=== PATIENT | female | born 1995 ===

== ENCOUNTER 2024-10-10 07:43 | Inpatient (IN) | payer MEDICARE, SELFPAY ==
[2024-10-10] VITALS (60 sets, daily range): BP systolic 124–166; BP diastolic 49–121; PULSE 72–117; RESP 14–36; TEMP 36.1–38; O2SAT 78–98; BMI 16.2
[2024-10-10 08:51] LABS: Abs Immature Grans 0.04 10^3/uL (0.0-0.06); Absolute Basophil Count 0.02 10^3/uL (0.0-0.2); Absolute Eosinophil Count 0.03 10^3/uL (0.0-0.7); Absolute Monocyte Count 1.04 10^3/uL (0.1-0.8); Absolute Neutrophil Count 6.12 10^3/uL (1.2-6.7); Basophils % 0.2 %; Eosinophils % 0.3 %; HCT 32.2 % (36.0-46.0); HGB 10.1 g/dL (11.2-15.7); Immature Grans % 0.4 %; Lymphocytes % 29.3 %; MCH 31.1 pg (27.0-33.0); MCHC 31.4 % (32.0-36.0); MCV 99 fL (80-95); MPV 10.5 fL (8.0-11.0); Monocytes % 10.1 %; Neutrophils % 59.7 %; Platelet Count 286 10^3/uL (130-400); RBC 3.25 10^6/uL (3.93-5.22); RDW 14.5 % (11.7-14.6); RDW-SD 52.5 fL; WBC 10.25 10^3/uL (4.4-10.8)
[2024-10-10] MEDS: PIPERACILLIN/TAZO 4.5 GM in Normal Saline 100 ML IVPB ×3 (08:59→20:00)
[2024-10-10] MEDS: Normal Saline Flush 10 ML SYR IVP ×2 (09:07→20:53)
[2024-10-10 09:28] LABS: ALT 23 U/L (14-59); AST 42 U/L (15-37); Albumin 3.2 g/dL (3.4-5.0); Alkaline Phosphatase 113 U/L (46-116); Anion Gap 11.8 mmol/L (3-11); BUN 20 mg/dL (7-18); CO2 20.2 mmol/L (21.0-32.0); CREATININE 0.7 mg/dL (0.55-1.02); Calcium 8.8 mg/dL (8.5-10.1); Chloride 119 mmol/L (98-107); Estimated GFR 118.51 (mL/min/1.73m2); Glucose 77 mg/dL (74-106); Potassium 3.9 mmol/L (3.5-5.1); Sodium 151 mmol/L (136-145); Total Protein 6.3 g/dL (6.4-8.2)
--- NOTE | 2024-10-10 10:53 | W.PM.HP.N ---
Date of service: 10/10/24 Time of Service: 10:54 Assessment and Plan Assessment and plan (1) Septic shock: Status: Acute Assessment and plan: - Patient may criteria for septic shock as that she was noted as having a white count at outside hospital, tachycardia, lactic acid of 4.1, and he did require Levophed but this is since been discontinued upon arrival to [facility] -She was started on vancomycin and Zosyn which will be continued for presumed UTI -Significant additional information has come to light since patient has been accepted to [facility] -Orthopedic surgery reviewed images from outside hospital, late was a noncontrast that he believes there is strong evidence 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 -Plan at this time is as follows: -At this facility we are unable to safely sedate patient for MRI, therefore most appropriate study to further evaluate patient's intracranial findings at outside hospital as well as potential spinal abscess are not available -Given this limitation, plan is for anesthesia to assist in conscious sedation of patient (likely with propofol though this is subject to change at this time), in order to obtain with and without contrast head and lumbar spine CT in order to obtain best potential images at this time of the both potential intracranial process as well as potential epidural abscess -discussed with tele-neuro, concern for CVA; watershed vs. embolic vs. infectious emboli; recomend repeat head CT. Unable to get LP due to possible lumbar spine osteo/epidural abscess, rec initiating acyclovir for HSV encephalitis -head CT wthout any intracranial findings -lumbar spine CT with and w/o has been done, read pending; once read is available will reach out to tertiary care centers for transfer (2) UTI (urinary tract infection): Status: Acute Assessment and plan: - 1 potentially many sources of infection as noted above (3) Osteoarthritis of right lower extremity: Status: Acute Assessment and plan: -As noted above (4) Encephalopathy: Status: Acute Assessment and plan: -Undifferentiated at this time, this may be a combination of toxic (patient was cocaine and marijuana positive at outside hospital and those remainder of drug screen was negative), infectious (given known UTI, high likelihood for left BKA stump osteo and epidural abscess at L4-L5 on myelitis) -Additionally, given that there is potential unclear intracranial process going on, plan is to get teleneurology consultation for further recommendations. Of note, this is scheduled to happen prior to above mentioned CT with sedation so that teleneurology can most appropriately assess the patient without any additional sedating medications on board. 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 According to [facility] records patient presented there concerns for mental status exchange engineer the prior 24 hours from her family. Patient currently lives with her grandparents, who had claims that they were taking care of her however upon EMSs arrival the patient was found covered in dry stool. On arrival to the emergency tray she was significantly encephalopathic and was determined to have been in septic shock with initially low blood pressures that improved with fluid rehydration and initial lactic acid of 4.1. Based on their urinalysis they felt that this was secondary to urinary tract infection, though also noted that she had a potential cellulitis or cellulitis of her right BKA stump for which she was started on vancomycin and Zosyn. While she was at [facility] she was noted to have worsening blood pressures and mean arterial pressures less than 65 and was started on Levophed. At that time, control provider reached out to tertiary care centers who were at capacity were unable to accept the patient. Additionally, it was noted that patient had a head CT that was potentially concerning for some intracranial process and is also documented that [facility] was concern for the potential of an anoxic brain injury as patient had not returned to baseline mental status was 48 hours after presentation. As of this mental status change, patient was unable to sit still long enough to obtain MRI. Despite this, overnight hospitalist Dr. Márquez accepted the patient in transfer to [facility] despite facilities inability to sedate patient for MRI, lack of appropriate neurologic services, and without first discussing with either orthopedic surgery or general surgery to assess for their potential involvement in her suspected right BKA stump osteomyelitis. Upon arrival to [facility] patient was noted as being encephalopathic, intermittently moaning and grimacing in pain, and unable or unwilling to verbally converse with staff. She was noted as being able to move around in bed, repositioning for self. Additionally, upon arrival patient no longer required Levophed and was noted as being otherwise hemodynamically stable. Review of Systems All systems reviewed & are unremarkable except as noted in HPI and below PFSH All Active Problems (Updated 10/10/24 @ 10:55 by Emilio Blackmon MD) Polysubstance (excluding opioids) dependence (Acute) Paraplegia (Acute) Encephalopathy (Acute) Osteoarthritis of right lower extremity (Acute) UTI (urinary tract infection) (Acute) Septic shock (Acute) Social History Smoking/Tobacco Use Status: Unknown Smoking risk assessment performed?: Yes Drug use: Daily Substance use type: marijuana and crack/cocaine Details: per report from Dr. Blackmon Meds Allergies and Home Medications Allergies Allergy/AdvReac Type Severity Reaction Status Date / Time succinylcholine Allergy Severe Anaphylaxis Verified 10/10/24 09:24 Results Labs 10/10/24 08:40 10/10/24 08:40 Labs: Laboratory Results - last 24 hr 10/10/24 08:40 WBC 10.25 RBC 3.25 L Hgb 10.1 L Hct 32.2 L MCV 99 H MCH 31.1 MCHC 31.4 L RDW 14.5 Plt Count 286 MPV 10.5 Immature Gran % 0.4 Neutrophils % 59.7 Lymphocytes % 29.3 Monocytes % 10.1 Eosinophils % 0.3 Basophils % 0.2 Nucleated RBC % 0.0 Absolute Neutrophils 6.12 Absolute Lymphocytes 3.00 Absolute Monocytes 1.04 H Absolute Eosinophils 0.03 Absolute Basophils 0.02 Sodium 151 H Potassium 3.9 Chloride 119 H Carbon Dioxide 20.2 L Anion Gap 11.8 H BUN 20 H Creatinine 0.7 Est GFR (CKD-EPI 2020) 118.51 Glucose 77 Calcium 8.8 Total Bilirubin 0.30 AST 42 H ALT 23 Alkaline Phosphatase 113 Total Protein 6.3 L Albumin 3.2 L Last Vital Signs Temp 100.4 F H 10/10/24 07:39 Pulse 83 10/10/24 07:09 Resp 21 10/10/24 07:09 BP 126/82 10/10/24 07:09 Pulse Ox 93 10/10/24 07:09 Time Spent Time spent with Patient: >75 minutes Time was spent: preparing to see the patient(eg.review tests), obtaining and/or reviewing separately otained hiistory, ordering medications,tests, procedures, referring, communicating with other health patient care assistant, indepentently interpreting results, counseling the patient and care coordination
[2024-10-10 11:36] LABS: BE (Venous) -10 mmol/L (-2-3); HCO3 (Venous) 16 mmol/L (23-28); Lactate 1.2 mmol/L (0.6-1.4); O2 Sat (Venous) 97 %; TCO2 (Venous) 15 mmol/L (24-29); pCO2 (Venous) 29 mmHg (41-51); pH (Venous) 7.34 (7.31-7.41); pO2 (Venous) 113 mmHg
[2024-10-10 11:53] LABS: Vancomycin, Trough 0.8 ug/mL (10.0-20.0)
--- NOTE | 2024-10-10 13:04 | CHAPLAIN ---
Renetta was curled up in the bed, would be still for a few moments and the groan like she was in pain, and then settle down again quickly. I explained who I was, and rubbed her back for a while. She continued to be still for short periods of time and then would groan again. The ICU staff is keeping a close eye on her. She came from [facility] and the staff here is trying to reach Renetta's family members to gain more information about her and what might sooth her.
[2024-10-10] MEDS: VANCOMYCIN 1,000 MG in Normal Saline 250 ML 250 MG IVPB (13:22)
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
--- NOTE | 2024-10-10 16:10 | ANES.PREOP_ITS ---
General Info Date of Service Date Performed: 10/10/24 Height: 5 ft Weight: 37.6 kg Body Mass Index (BMI): 16.2 Meds Allergies and Home Medications Allergies Allergy/AdvReac Type Severity Reaction Status Date / Time succinylcholine Allergy Severe Anaphylaxis Verified 10/10/24 09:24 Current Visit Medications: Current Medications Generic Name Dose Route Start Last Admin Trade Name Freq PRN Reason Stop Dose Admin Acetaminophen 0 mg 10/10/24 07:43 Acetaminophen 325 Mg Tab PO Q4H PRN PRN Docusate Sodium 100 mg 10/10/24 07:43 Docusate Sodium 100 Mg Cap PO TID PRN PRN Vancomycin/PEG/NADA/Lysine/Water 750 mg in 150 mls @ 150 mls/hr 10/11/24 00:00 Vancocin Injection IVPB Q12H TONY Piperacillin Sod/Tazobactam 100 mls @ 200 mls/hr 10/10/24 08:00 10/10/24 11:44 Sod 4.5 gm/ Sodium Chloride IVPB Infused Q6H TONY Infusion IV Miscellaneous Supplies 1 each 10/10/24 07:45 Iv Access IV DIRECTED TONY Polyethylene Glycol 17 gm 10/10/24 07:43 Polyethylene Glycol 3350 17 Gm Packet PO DAILY PRN PRN Constipation Sodium Chloride 0 ml 10/10/24 07:43 Normal Saline Flush 10 Ml Syr IVP PRN PRN Sodium Chloride 0 ml 10/10/24 08:30 10/10/24 09:07 Normal Saline Flush 10 Ml Syr IVP 60 ml BID TONY Administration Sodium Chloride 0 ml 10/10/24 07:43 Normal Saline 10 Ml Vial IJ DIRECTED PRN PFSH Active Problems Active Problems: Problem Status Onset Code Polysubstance (excluding opioids) dependence Acute F19.20 Paraplegia Acute G82.20 Encephalopathy Acute G93.40 Osteoarthritis of right lower extremity Acute M19.91 UTI (urinary tract infection) Acute N39.0 Septic shock Acute A41.9, R65.21 Tobacco Smoking/Tobacco Use Status: Unknown Substance Use Substance use: Daily Substance use type: marijuana and crack/cocaine Details: per report from Dr. Blackmon Vital Signs and Lab Results Vital Signs Most Recent Vital Signs in EMR: Most Recent Vital Signs Temp Pulse Resp BP Pulse Ox 36.1 C L 72 21 166/111 H 96 10/10/24 15:34 10/10/24 15:34 10/10/24 15:34 10/10/24 15:34 10/10/24 15:34 Lab Results 10/10/24 08:40 10/10/24 08:40 Blood Type / Crossmatch: 2 No Data to Display Complete Blood Count: 2 White Blood Count 10.25 10^3/uL (4.4-10.8) 10/10/24 08:40 Red Blood Count 3.25 10^6/uL (3.93-5.22) L 10/10/24 08:40 Hemoglobin 10.1 g/dL (11.2-15.7) L 10/10/24 08:40 Hematocrit 32.2 % (36.0-46.0) L 10/10/24 08:40 Platelet Count 286 10^3/uL (130-400) 10/10/24 08:40 Venous Blood Lactate 1.2 mmol/L (0.6-1.4) 10/10/24 11:30 Complete Metabolic Panel: 2 Sodium 151 mmol/L (136-145) H 10/10/24 08:40 Potassium 3.9 mmol/L (3.5-5.1) 10/10/24 08:40 Chloride 119 mmol/L (98-107) H 10/10/24 08:40 Carbon Dioxide 20.2 mmol/L (21.0-32.0) L 10/10/24 08:40 BUN 20 mg/dL (7-18) H 10/10/24 08:40 Creatinine 0.7 mg/dL (0.55-1.02) 10/10/24 08:40 Est GFR (CKD-EPI 2020) 118.51 (mL/min/1.73m2) 10/10/24 08:40 Calcium 8.8 mg/dL (8.5-10.1) 10/10/24 08:40 Albumin 3.2 g/dL (3.4-5.0) L 10/10/24 08:40 Glucose 77 mg/dL (74-106) 10/10/24 08:40 Liver Function Panel: 2 Alanine Aminotransferase (ALT/SGPT) 23 U/L (14-59) 10/10/24 08: 40 Aspartate Amino Transf (AST/SGOT) 42 U/L (15-37) H 10/10/24 08: 40 Coagulation Panel: 2 No Data to Display Cardiac Panel: 2 No Data to Display Arterial Blood Gas: 2 No Data to Display Venous Blood Gas: 2 Venous Blood pH 7.34 (7.31-7.41) 10/10/24 11:30 Venous Blood Partial Pressure O2 113 mmHg 10/10/24 11:30 Venous Blood Partial Pressure CO2 29 mmHg (41-51) L 10/10/24 11 :30 Venous Blood Oxygen Saturation 97 % 10/10/24 11:30 Venous Blood HCO3 16 mmol/L (23-28) L 10/10/24 11:30 Venous Blood Base Excess -10 mmol/L (-2-3) L 10/10/24 11:30 Venous Blood Total Carbon Dioxide 15 mmol/L (24-29) L 10/10/24 11:30 Pancreas Panel: 2 No Data to Display Thyroid Panel: 2 No Data to Display Infectious Disease: 2 No Data to Display Blood Cultures: 2 No Data to Display Toxicology Panel: 2 No Data to Display Panel: 2 No Data to Display Anesthesia Assessment and Plan Anesthesia History Personal History: Unknown Anesthesia History Family History: Other (Unknown) Exercise Tolerance Exercise Tolerance: Unknown Pertinent Negatives Pertinent Negatives: Other Cardiac & Pulmonary Exam Cardiac Exam: Normal S1/S2 Heart Sounds Pulmonary Exam: Unable to Assess Implantable Cardiac Device Does patient have a Pacemaker or an ICD?: No Airway Exam Known Difficult Airway: No Mallampati Class: Unable to Assess Mouth Opening: Unable to Assess Thyromental Distance: Other Neck Range of Motion: Unable to Assess Neck Circumference: Normal Teeth Condition: Generalized Poor Dentition ASA Classification ASA Score: ASA 3 Emergency Case?: Yes NPO Status NPO Status: NPO Clears >2 hours, Solids >8 hours Status Status: Unable to Assess Anesthesia Plan Resuscitation Status: Full Code Anesthesia Technique: General Anesthesia Airway Planned: Natural Airway Monitors Used: Standard Monitors Preoperative Comments:: Patient with altered mental status that is able to intermittently respond verbally appropriately to words. She is able to protect her airway and has been at [facility] since 0700 and has had no oral intake. Dr. Blackmon has requested on an emergent status that the patient have a CT scan, but is unable to sit still. After discussion with the anesthesia team, decided best approach would be to provide a rapid onset/offset anesthetic to obtain imaging. Patient was met in ICU and an 18g L/AC IV was placed.
[2024-10-10] MEDS: Normal Saline - Diluent 50 ML VIAL IJ (16:18)
[2024-10-10] MEDS: Omnipaque 350 MG/ML 100 ML BTL IJ (16:18)
--- NOTE | 2024-10-10 17:12 | DI.CT_ITS ---
Exam(s) CT LUMBAR SPINE W EXAM: CT LUMBAR SPINE W CLINICAL HISTORY: ? [facility] TECHNIQUE: Imaging Protocol: Axial computed tomography images with coronal and sagittal reformatted images were created and reviewed 100 mL Omnipaque 350 IV COMPARISON: CR XR FEMUR 2V RT from 10/08/2024 CR XR KNEE 1 OR 2V LT from 10/08/[address] LOWER EXT RT WO CONTRAST from 10/08/2024 CR XR CHEST 1 VW from 10/08/[address] RENAL COLIC from 10/08/[address] HEAD/BRAIN W/CONTRAST from 10/09/2024 FINDINGS: Exam is extremely limited by artifact from spinal hardware which is noted throughout the visualized t horacic as well as lumbosacral spine. Exam also limited due to lack of inclusion of the anterior por tion of the lower chest and abdomen within the field of view. Bones: The last intervertebral disc space is designated the L5/S1 level for the numbering purpose of this examination. The chronic bilateral hip deformities. The vertebral body heights are well maintained. No destructive lesions are identified in the portion s of the spine and pelvis not obscured by artifact. The visualized SI joints and sacrum are well maintained. Screws extend from the level of S2 into the iliac wings. No fracture is visible Soft Tissues: Lungs: No evidence of pleural effusion. No gross evidence pulmonary consolidation. Liver and spleen are unremarkable. The gallbladder appears distended. No visible wall thickening. The kidneys are mainly obscured by artifact. The majority of the bowel is obscured by artifact. There is a large quantity of stool within the rec [place]. There is abnormal rectal wall thickening which could indicate proctitis. No visible abscess. Bladder: Marked wall thickening. Large bladder stone again noted. Other smaller stones. Woodard cath eter present. Air within bladder. Uterus is grossly normal in appearance. Ovaries are obscured. Vasculature: No gross abnormality identified. IMPRESSION: Extremely limited exam secondary to extensive metallic hardware. Markedly thick-walled urinary bladder large bladder stone multiple other smaller stones. Findings co uld be chronic or could represent cystitis. We large quantity of stool distending the rectum. Rectal wall thickening could indicate proctitis. No perirectal abscess is identified. Extremely limited evaluation of the spine due to hardware. No bony erosions are identified. Distended gallbladder without wall thickening. RADIATION DOSE DELIVERED: Total DLP DATA REPOSITORY: All CT scans at this facility are submitted to the National Radiology Data Registry (NRDR) Dose Index Registry (DIR) with the [employer] (ACR). RADIATION OPTIMIZATION: All CT scans at this facility use at least one of these dose optimization te chniques: automated exposure control; mA and/or kV adjustment per patient size (includes targeted exa ms where dose is matched to clinical indication); or iterative reconstruction.
--- NOTE | 2024-10-10 17:13 | DI.CT_ITS ---
Exam(s) CT HEAD WO/W EXAM: CT HEAD WO/W CLINICAL HISTORY: ? CVA, embolic, watershed, infectious. TECHNIQUE: Imaging Protocol: Axial computed tomography images with coronal and sagittal reformatted images were created and reviewed. CONTRAST MATERIAL: Intravenous: Omnipaque 350 contrast volume:100 mL COMPARISON: CT CT HEAD/BRAIN WO CONTRAST from 10/08/[address] HEAD/BRAIN W/CONTRAST from 10/09/[address] LUMBAR SPINE W from 10/10/2024 FINDINGS: Ventricles and Extra axial spaces: Normal in size and morphology for the patient's age. Hemorrhage: None. Cerebral parenchyma: Normal. No evidence of an acute territorial infarct. Enhancement: No suspicious enhancement. [place]: Unremarkable. No evidence of occlusion. No filling defects are seen. No evidence of an aneurysm. Midline shift: None. Brainstem/Cerebellum: Normal. Calvarium: Normal. Visualized Paranasal sinuses/Mastoids: Clear. IMPRESSION: Normal CT scan of the head. RADIATION DOSE DELIVERED: 2,114.57mGy.cm Total DLP 2,114.57mGy.cm Total DLP DATA REPOSITORY: All CT scans at this facility are submitted to the National Radiology Data Registry (NRDR) Dose Index Registry (DIR) with the [employer] (ACR). RADIATION OPTIMIZATION: All CT scans at this facility use at least one of these dose optimization te chniques: automated exposure control; mA and/or kV adjustment per patient size (includes targeted exa ms where dose is matched to clinical indication); or iterative reconstruction.
--- NOTE | 2024-10-10 17:56 | W.ANESPOSTOP ---
Postoperative Evaluation Date, Time and Location Date Performed: 10/10/24 Time Performed: 17:04 Patient Location: Other (Handoff to ICU nurse who was present for scan, on ICU monitors for transport to ICU.) Vital Signs Most Recent Imported Vital Signs: Most Recent Vital Signs Temp Pulse Resp BP Pulse Ox 36.1 C L 72 21 166/111 H 96 10/10/24 15:34 10/10/24 15:34 10/10/24 15:34 10/10/24 15:34 10/10/24 15:34 Assessment Mental Status: Arousable with meaningful communication (Patient baseline) Airway and Respiratory Function: Patent airway with normal (patient baseline) respiratory exam Cardiovascular Function: Hemodynamically Stable Hydration Status: Adequately Hydrated Nausea & Vomiting: No Nausea or Vomiting Pain: Pt. Denies Any Pain Peripheral Nerve Block: Patient did not receive a nerve block
--- NOTE | 2024-10-10 19:05 | DI.VRAD_ITS ---
PROCEDURE INFORMATION: Exam: CT Lumbar Spine With Contrast Exam date and time: 10/10/2024 4:06 PM Age: 29 years old Clinical indication: Other: ? Lumbar spine abscess on non contrast CT at [facility] TECHNIQUE: Imaging protocol: Computed tomography of the lumbar spine with contrast. Contrast material: OMNIPAQUE 350; Contrast volume: 100 ml; Contrast route: INTRAVENOUS (IV); COMPARISON: No relevant prior studies available. FINDINGS: Limitations: There is severe metallic artifact degrading the images so severely that the study. The prior study with possible lumbar spine abscess is not available for comparison. Clinical history is extremely limited. Bones/joints: There is extensive postsurgical changes of the visualized thoracic, lumbar, sacrum, and iliac wings. There are pedicle screws from the visualized T10 vertebral body to S1 vertebral body and then extension screws into the right and left iliac wing. Lungs: Limited views of the lung bases are clear. Extreme streak artifact through the visualized lung bases and upper abdomen. Gallbladder and biliary ducts: Distended gallbladder. The anterior portion of the chest and abdomen are not included on the images. Stomach and bowel: Stool distended rectum with thickening of the rectal wall and enhancement of the mucosa. Urinary bladder: Woodard catheter in the urinary bladder. Large calcifications in the urinary bladder. Thickened bladder wall with mucosal enhancement of concern for cystitis. Air within the urinary bladder. Soft tissues: Extensive streak artifact limiting visualization of the soft tissues. Other findings: Arterial timing of contrast injection. IMPRESSION: 1. Nondiagnostic images as discussed above. Cannot rule out lumbar spine abscess. Extremely limited clinical history. 2. No definite spinal abscess seen. Prior study is not available for comparison. When prior study becomes available an addendum dictation can be made. 3. Large bladder calculi and punctate air in the bladder. Thickened bladder wall with mucosal enhancement of concern for cystitis. 4. Stool distended rectum with concern of inflammation or infectious process involving the rectum. 5. Additional findings as discussed above. Dictated and Authenticated by: Marlene Perez MD. Ordering:JACLYN Damon MD
[2024-10-10] MEDS: fentaNYL 100 MCG/2 ML VIAL 50 MCG IVP (19:14)
--- NOTE | 2024-10-10 19:17 | DI.VRAD_ITS ---
Addendum created by Marlene Perez MD on 10/10/2024 7:16:57 PM EST: Findings were discussed with Dr. Hoff at 10/10/2024 7:13 PM EST. Initial report created on 10/10/2024 7:03:49 PM EST: PROCEDURE INFORMATION: Exam: CT Lumbar Spine With Contrast Exam date and time: 10/10/2024 4:06 PM Age: 29 years old Clinical indication: Other: ? Lumbar spine abscess on non contrast CT at [facility] TECHNIQUE: Imaging protocol: Computed tomography of the lumbar spine with contrast. Contrast material: OMNIPAQUE 350; Contrast volume: 100 ml; Contrast route: INTRAVENOUS (IV); COMPARISON: No relevant prior studies available. FINDINGS: Limitations: There is severe metallic artifact degrading the images so severely that the study. The prior study with possible lumbar spine abscess is not available for comparison. Clinical history is extremely limited. Bones/joints: There is extensive postsurgical changes of the visualized thoracic, lumbar, sacrum, and iliac wings. There are pedicle screws from the visualized T10 vertebral body to S1 vertebral body and then extension screws into the right and left iliac wing. Lungs: Limited views of the lung bases are clear. Extreme streak artifact through the visualized lung bases and upper abdomen. Gallbladder and biliary ducts: Distended gallbladder. The anterior portion of the chest and abdomen are not included on the images. Stomach and bowel: Stool distended rectum with thickening of the rectal wall and enhancement of the mucosa. Urinary bladder: Woodard catheter in the urinary bladder. Large calcifications in the urinary bladder. Thickened bladder wall with mucosal enhancement of concern for cystitis. Air within the urinary bladder. Soft tissues: Extensive streak artifact limiting visualization of the soft tissues. Other findings: Arterial timing of contrast injection. IMPRESSION: 1. Nondiagnostic images as discussed above. Cannot rule out lumbar spine abscess. Extremely limited clinical history. 2. No definite spinal abscess seen. Prior study is not available for comparison. When prior study becomes available an addendum dictation can be made. 3. Large bladder calculi and punctate air in the bladder. Thickened bladder wall with mucosal enhancement of concern for cystitis. 4. Stool distended rectum with concern of inflammation or infectious process involving the rectum. 5. Additional findings as discussed above. Dictated and Authenticated by: Marlene Perez MD. Ordering:JACLYN Damon MD
[2024-10-10] MEDS: LORazepam 2 MG/ML VIAL 0.5 MG IVP ×2 (20:11→21:58)
[2024-10-10] MEDS: HYDROmorphone 2 MG/ML SYR 1 MG IVP ×2 (20:12→21:58)
[2024-10-10] MEDS: Haloperidol 5 MG/ML VIAL 2 MG IM/IV (22:50)
[2024-10-11] VITALS (43 sets, daily range): BP systolic 90–118; BP diastolic 41–73; PULSE 57–103; RESP 15–27; TEMP 35.2–37.1; O2SAT 93–98
[2024-10-11] MEDS: HYDROmorphone 2 MG/ML SYR 1 MG IVP ×7 (00:03→15:49)
[2024-10-11] MEDS: LORazepam 2 MG/ML VIAL 1 MG IVP ×6 (00:03→15:49)
[2024-10-11] MEDS: VANCOMYCIN/WATER (PEG) 750 MG/150 ML BAG 150 MG IVPB (00:10)
[2024-10-11] MEDS: PIPERACILLIN/TAZO 4.5 GM in Normal Saline 100 ML IVPB ×4 (02:03→20:04)
[2024-10-11] MEDS: Haloperidol 5 MG/ML VIAL 2 MG IM/IV ×2 (02:47→06:52)
[2024-10-11 06:25] LABS: HCT 34.9 % (36.0-46.0); HGB 11.5 g/dL (11.2-15.7); MCH 30.6 pg (27.0-33.0); MCV 93 fL (80-95); MPV 10.9 fL (8.0-11.0); Platelet Count 274 10^3/uL (130-400); RBC 3.76 10^6/uL (3.93-5.22); RDW 14.4 % (11.7-14.6); RDW-SD 48.5 fL; WBC 10.24 10^3/uL (4.4-10.8)
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
[2024-10-11 06:44] LABS: Vancomycin, Random 21.8 ug/mL
[2024-10-11 08:25] LABS: Anion Gap 16.6 mmol/L (3-11); BUN 11 mg/dL (7-18); CO2 22.4 mmol/L (21.0-32.0); CREATININE 0.6 mg/dL (0.55-1.02); Chloride 125 mmol/L (98-107); Estimated GFR 122.99 (mL/min/1.73m2); Glucose 75 mg/dL (74-106)
[2024-10-11 08:28] LABS: Potassium 2.6 mmol/L (3.5-5.1); Sodium 164 mmol/L (136-145)
[2024-10-11] MEDS: DEXTROSE 5%-WATER 1,000 ML 30 ML IV (08:59)
[2024-10-11] MEDS: POTASSIUM CHLORIDE 10 MEQ/100 ML BAG 100 MEQ IV_INF ×6 (09:01→23:04)
[2024-10-11] MEDS: Normal Saline Flush 10 ML SYR IVP ×2 (09:04→15:50)
[2024-10-11 09:10] LABS: BE (Venous) -6 mmol/L (-2-3); HCO3 (Venous) 20 mmol/L (23-28); O2 Sat (Venous) 96 %; TCO2 (Venous) 18 mmol/L (24-29); pCO2 (Venous) 35 mmHg (41-51); pH (Venous) 7.36 (7.31-7.41); pO2 (Venous) 106 mmHg
[2024-10-11 09:13] LABS: ESR 12 mm/hr (0-20)
[2024-10-11 09:24] LABS: C-Reactive Protein 3.29 mg/dL (<or=0.5)
[2024-10-11 11:56] LABS: Lactate 0.7 mmol/L (0.6-1.4)
--- NOTE | 2024-10-11 12:09 | PHA.REVIEW2 ---
Pharmacy Admission Review Admission Clinical Review Admission Pharmacy Review: Polysubstance (excluding opioids) dependence (Acute) Paraplegia (Acute) Encephalopathy (Acute) Osteoarthritis of right lower extremity (Acute) UTI (urinary tract infection) (Acute) Septic shock (Acute) succinylcholine Allergy (Severe, Verified 10/10/24 09:24) Anaphylaxis Resuscitation Status Full Code Height 5 ft Weight 31.5 kg Pharmacy Admission Review Renal Dosing Renal Dosing: BUN 11 mg/dL (7-18) 10/11/24 07:10 Creatinine 0.6 mg/dL (0.55-1.02) 10/11/24 07:10 Medications needing adjustments: Reviewed (CrCl 67.15 mL/min, BUN decreased from 20) List of meds needing interventions: Current medications are okay Anticoagulation Anticoagulation: Hgb 11.5 g/dL (11.2-15.7) 10/11/24 05:40 Hct 34.9 % (36.0-46.0) L 10/11/24 05:40 Plt Count 274 10^3/uL (130-400) 10/11/24 05:40 Creatinine 0.6 mg/dL (0.55-1.02) 10/11/24 07:10 DVT Prophylaxis: Intervened (No order this morning, reached out to provider who asked that enoxaparin 30mg daily be put in) Medications: Enoxaparin (30mg daily (BMI 13.6)) Opiate Usage Evaluate Pain Scale/Pains Meds: Reviewed (hydromorphone 1mg IVP q2h PRN - 8mg / 24hrs) Scheduled Bowel Reg ordered if on Opiates?: No (PRN docusate/Miralax) Relevant Labs Relevant Labs: ESR 12 mm/hr (0-20) 10/11/24 09:00 Sodium 164 mmol/L (136-145) H* D 10/11/24 07:10 Potassium 2.6 mmol/L (3.5-5.1) L* D 10/11/24 07:10 Chloride 125 mmol/L (98-107) H 10/11/24 07:10 Magnesium 2.0 mg/dL (1.8-2.4) 10/11/24 07:10 C-Reactive Protein 3.29 mg/dL (<or=0.5) H 10/11/24 09:00 Electrolytes, C-Reactive P, ESR: Reviewed (Na 164, K 2.6 - repleting with 10 mEq IV infusion, repeat labs are pending for 1300) Cardiac Review BP, HR, EF%: Reviewed (HR and BP WNL) QTc Review QTc: Reviewed (No EKG on file) IV to PO Switch IV Medications: Reviewed (acyclovir, haloperidol, hydromorphone, lorazepam, Zosyn and vancomycin - currently NPO) Home Meds Home Med List reviewed: Intervened Relevent Home Meds Not ordered & why?: Currently has nothing listed on home med list Recently filled (external med history): oxybutynin, baclofen, escitalopram and pantoprazole. Per nurse patient unable to answer questions at this time. Informed provider of these medications. Per provider patient currently NPO. Did not add to home med list, waiting until we can get them confirmed. Current Meds Current Medication Order Review: Reviewed Pharmacy Antibiotic Review Relevant Labs: Relevant Labs 10/11/24 09:00 C-Reactive Protein 3.29 H WBC 10.24 10^3/uL (4.4-10.8) 10/11/24 05:40 Temperature 36.2 C Temperature 37.1 C Microbiology 10/10/24 10:57 Urine Culture - Preliminary Urine - Cath Woodard Indwelling NO GROWTH @ 24hrs Pharmacy Antibiotic Activity: C/S review and Reviewed, no change Comments: Patient is currently on Zosyn and vancomycin for septic shock/UTI/possible osteomyelitis. Vancomycin dose was 750mg q12h, level this AM was 21.8 at 0540. Changed order to 1250mg q24h with predicted AUC of 552 and trough of 12.9. Ordered another level for tomorrow at 1800. Will adjust dose as needed. Patient has been afebrile for over 24 hours, WBC WNL and urine cultures showing no growth at 24 hours.
[2024-10-11 13:23] LABS: Anion Gap 12.4 mmol/L (3-11); BUN 13 mg/dL (7-18); CO2 23.6 mmol/L (21.0-32.0); CREATININE 0.6 mg/dL (0.55-1.02); Calcium 8.9 mg/dL (8.5-10.1); Chloride 129 mmol/L (98-107); Estimated GFR 122.99 (mL/min/1.73m2); Glucose 87 mg/dL (74-106); Potassium 3.2 mmol/L (3.5-5.1)
[2024-10-11 13:24] LABS: Sodium 165 mmol/L (136-145)
--- NOTE | 2024-10-11 14:42 | W.PM.DS.N ---
Date of service: 10/11/24 Time of Service: 14:42 DS: Diagnosis Discharge Diagnosis (1) Septic shock: Status: Acute Asessment and Plan: - Patient may criteria for septic shock as that she was noted as having a white count at outside hospital, tachycardia, lactic acid of 4.1, and he did require Levophed but this is since been discontinued upon arrival to [facility] -She was started on vancomycin and Zosyn which will be continued for presumed UTI -Significant additional information has come to light since patient has been accepted to [facility] -Orthopedic surgery reviewed images from outside hospital, late was a noncontrast that he believes there is strong evidence 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 -Plan at this time is as follows: -At this facility we are unable to safely sedate patient for MRI, therefore most appropriate study to further evaluate patient's intracranial findings at outside hospital as well as potential spinal abscess are not available -Given this limitation, plan is for anesthesia to assist in conscious sedation of patient (likely with propofol though this is subject to change at this time), in order to obtain with and without contrast head and lumbar spine CT in order to obtain best potential images at this time of the both potential intracranial process as well as potential epidural abscess -discussed with tele-neuro, concern for CVA; watershed vs. embolic vs. infectious emboli; recomend repeat head CT. Unable to get LP due to possible lumbar spine osteo/epidural abscess, rec initiating acyclovir for HSV encephalitis -head CT wthout any intracranial findings -lumbar spine CT unable to rule out lumbar spine osteomyelitis for epidural spinal abscess secondary to artifact from spinal hardware -Discussed case with hospitalist at [facility] where they have all appropriate capabilities to assess and care for patient, and have agreed to accept patient in transfer (2) UTI (urinary tract infection): Status: Acute Asessment and Plan: - 1 potentially many sources of infection as noted above (3) Encephalopathy: Status: Acute Asessment and Plan: -Undifferentiated at this time, this may be a combination of toxic (patient was cocaine and marijuana positive at outside hospital and those remainder of drug screen was negative), infectious (given known UTI, high likelihood for left BKA stump osteo and epidural abscess at L4-L5 on myelitis) -Additionally, given that there is potential unclear intracranial process going on (4) Osteoarthritis of right lower extremity: Status: Acute Asessment and Plan: -As noted above (5) Hypernatremia: Status: Acute Asessment and Plan: - On the morning of 10/11/2024 patient sodium was noted as being 165 baseline but this is likely secondary to insensible loss and dehydration as patient was initially unable to have consistent IV access for IV fluids upon admission 10/10/2024 -She has since been started on D5W 1 cc/kg/h, will check a BMP every 4 hours for appropriate correction (6) Paraplegia: Status: Acute (7) Polysubstance (excluding opioids) dependence: Status: Acute Discharge Plan Disposition Patient Disposition: Transfer-Acute Inpatient Care Specific Acute Inpt Facility: [facility] Condition: Fair Discharge Details Reason For Visit: Septic Shock Admit Date/Time: 10/10/24 07:43 Admit Provider: Nelson Márquez Attending Provider: Nelson Márquez Hospital Course Hospital Course: please see discharge summary Discharge Instructions Activity:: Activity as Tolerated Equipment/Supplies:: No Equipment Needed Diet:: As Tolerated DS: Summary Time Spent with Patient providing and/or coordinating discharge services: Greater than 30 minutes Status at Discharge Functional status at discharge: bed bound Overall status at discharge: patient is not back to baseline Mental Status: other Speech and Movement: agitated, delayed speech and restless Mood: other Affect: irritable affect Quality:SDOH Health Related Social Needs: No Data to Display Exam Narrative Exam Narrative: Acute on chronically ill-appearing elderly female, malnourished/cachectic appearing, sitting around in bed, moaning in pain and nonverbal at this time, visualized for mentation, heart regular rhythm, lungs clear to auscultation bilaterally, abdomen soft, nontender, nondistended, spontaneously moving all 4 limbs, patient not following commands therefore unable to perform appropriate neurologic exam at this time Psych Mental Status: other Speech and Movement: agitated, delayed speech and restless Mood: other Affect: irritable affect DS: Data Vitals/I&O Vitals and I&O: Vital Signs Temperature 95.4 F L 10/11/24 13:10 Temperature Source Temporal Artery Scan 10/11/24 08:01 Pulse 79 10/11/24 08:01 Pulse 81 10/11/24 10:00 Respiratory Rate 21 10/11/24 10:00 Blood Pressure 117/65 10/11/24 08:01 Blood Pressure Mean 81 10/11/24 08:01 Pulse Oximetry 95 10/11/24 10:00 Oxygen Delivery Method Room Air 10/11/24 08:01 Oxygen Flow Rate 0 10/11/24 08:01 Intake & Output 10/10/24 10/11/24 10/11/24 17:59 05:59 17:59 Intake Total 100 / 100 900 / 1000 637 / 637 Output Total 750 / 750 1175 / 1925 1200 / 1200 Balance -650 / -650 -275 / -925 -563 / -563 Weight 82 lb 14.301 oz 69 lb 7.13 oz Intake: IV 100 / 100 900 / 1000 637 / 637 Oral 0 / 0 Output: Urine 750 / 750 1175 / 1925 1200 / 1200 Other: Urine Color Light Rekha Light Rekha Light Rekha Urine Appearance Clear Clear Cloudy Sediment Sediment Urine Odor Strong Normal Comment patient catheter was not draining, irrigation was performed and sedimentation removed, urine flow has remained intact since irrigation was performed. Data Completed and Pending Labs on day of discharge: Labs from last 24 hours 10/11/24 10/11/24 10/11/24 21:00 17:00 13:05 WBC RBC Hgb Hct MCV MCH MCHC RDW Plt Count MPV ESR VBG pH VBG pCO2 VBG pO2 VBG HCO3 VBG Total CO2 VBG O2 Saturation VBG Base Excess VBG Lactate Sodium Pending Pending 165 H* Potassium Pending Pending 3.2 L Chloride Pending Pending 129 H Carbon Dioxide Pending Pending 23.6 Anion Gap Pending Pending 12.4 H BUN Pending Pending 13 Creatinine Pending Pending 0.6 Est GFR (CKD-EPI 2020) Pending Pending 122.99 Glucose Pending Pending 87 Calcium Pending Pending 8.9 Magnesium C-Reactive Protein Random Vancomycin 10/11/24 10/11/24 10/11/24 09:00 07:10 05:40 WBC 10.24 RBC 3.76 L Hgb 11.5 Hct 34.9 L MCV 93 D MCH 30.6 MCHC 33.0 RDW 14.4 Plt Count 274 MPV 10.9 ESR 12 VBG pH 7.36 VBG pCO2 35 L VBG pO2 106 VBG HCO3 20 L VBG Total CO2 18 L VBG O2 Saturation 96 VBG Base Excess -6 L VBG Lactate 0.7 Sodium 164 H* D Cancelled Potassium 2.6 L* D Cancelled Chloride 125 H Cancelled Carbon Dioxide 22.4 Cancelled Anion Gap 16.6 H Cancelled BUN 11 Cancelled Creatinine 0.6 Cancelled Est GFR (CKD-EPI 2020) 122.99 Cancelled Glucose 75 Cancelled Calcium 9.0 Cancelled Magnesium 2.0 Cancelled C-Reactive Protein 3.29 H Random Vancomycin 21.8 Preliminary micro results at discharge 10/10/24 10:57 Urine Culture - Preliminary Urine - Cath Woodard Indwelling PFSH All Active Problems (Updated 10/11/24 @ 14:44 by Emilio Blackmon MD) Hypernatremia (Acute) Polysubstance (excluding opioids) dependence (Acute) Paraplegia (Acute) Encephalopathy (Acute) Osteoarthritis of right lower extremity (Acute) UTI (urinary tract infection) (Acute) Septic shock (Acute) Social History Smoking/Tobacco Use Status: Unknown Smoking risk assessment performed?: Yes Drug use: Daily Substance use type: marijuana and crack/cocaine Details: per report from Dr. Blackmon Time Spent with Patient Time Spent with Patient: <45 minutes Time was spent: preparing to see the patient(eg.review tests), obtaining and/or reviewing separately otained hiistory, ordering medications,tests, procedures, referring, communicating with other health career representative, indepentently interpreting results, counseling the patient and care coordination
[2024-10-11] MEDS: Enoxaparin 30 MG/0.3 ML SYR SC (14:43)
[2024-10-11 17:25] LABS: Anion Gap 11.7 mmol/L (3-11); BUN 14 mg/dL (7-18); CO2 25.3 mmol/L (21.0-32.0); CREATININE 0.6 mg/dL (0.55-1.02); Calcium 8.6 mg/dL (8.5-10.1); Chloride 128 mmol/L (98-107); Estimated GFR 122.99 (mL/min/1.73m2); Glucose 101 mg/dL (74-106)
[2024-10-11 17:28] LABS: Potassium 2.8 mmol/L (3.5-5.1); Sodium 165 mmol/L (136-145)
--- NOTE | 2024-10-11 21:08 | NUR.NOTE ---
Nursing bakery supervisor clarifies [facility] and behavioral health intervention/orders are for [facility] & [facility] mental health crisis only. Sup will have staff in room\door but both orders dc'd at this time.
[2024-10-11 21:23] LABS: Anion Gap 12.3 mmol/L (3-11); BUN 14 mg/dL (7-18); CO2 24.7 mmol/L (21.0-32.0); CREATININE 0.6 mg/dL (0.55-1.02); Calcium 8.2 mg/dL (8.5-10.1); Chloride 127 mmol/L (98-107); Estimated GFR 122.99 (mL/min/1.73m2); Glucose 99 mg/dL (74-106)
[2024-10-11 21:26] LABS: Potassium 2.7 mmol/L (3.5-5.1); Sodium 164 mmol/L (136-145)
[2024-10-11] MEDS: VANCOMYCIN/WATER (PEG) 1.25 GM/250 ML BAG IVPB (22:04)
[2024-10-12] VITALS (15 sets, daily range): BP systolic 72–116; BP diastolic 46–74; PULSE 47–76; RESP 11–28; TEMP 36–36.9; O2SAT 93–96
[2024-10-12] MEDS: HYDROmorphone 2 MG/ML SYR 1 MG IVP ×9 (00:17→20:24)
[2024-10-12] MEDS: Normal Saline Flush 10 ML SYR IVP ×7 (00:19→20:25)
[2024-10-12] MEDS: POTASSIUM CHLORIDE 10 MEQ/100 ML BAG 100 MEQ IV_INF ×5 (00:59→16:48)
[2024-10-12] MEDS: DEXTROSE 5%-WATER 1,000 ML 100 ML IV ×2 (01:00→11:04)
[2024-10-12] MEDS: PIPERACILLIN/TAZO 4.5 GM in Normal Saline 100 ML IVPB ×4 (02:48→20:26)
[2024-10-12] MEDS: LORazepam 2 MG/ML VIAL 1 MG IVP ×2 (03:37→09:29)
[2024-10-12 08:33] LABS: BUN 12 mg/dL (7-18); CREATININE 0.6 mg/dL (0.55-1.02); Chloride 122 mmol/L (98-107); Estimated GFR 122.99 (mL/min/1.73m2); Glucose 110 mg/dL (74-106); Potassium 3.1 mmol/L (3.5-5.1); Sodium 155 mmol/L (136-145)
[2024-10-12] MEDS: Enoxaparin 30 MG/0.3 ML SYR SC (14:14)
--- NOTE | 2024-10-12 17:00 | W.PM.PROGNOT ---
Date of Service Date of service: 10/12/24 Time of Service: 17:00 Assessment and Plan Assessment and plan (1) Septic shock: Status: Acute Assessment and plan: - Patient may criteria for septic shock as that she was noted as having a white count at outside hospital, tachycardia, lactic acid of 4.1, and he did require Levophed but this is since been discontinued upon arrival to [facility] -She was started on vancomycin and Zosyn which will be continued for presumed UTI -Significant additional information has come to light since patient has been accepted to [facility] -Orthopedic surgery reviewed images from outside hospital, late was a noncontrast that he believes there is strong evidence 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 -Plan at this time is as follows: -At this facility we are unable to safely sedate patient for MRI, therefore most appropriate study to further evaluate patient's intracranial findings at outside hospital as well as potential spinal abscess are not available -Given this limitation, plan is for anesthesia to assist in conscious sedation of patient (likely with propofol though this is subject to change at this time), in order to obtain with and without contrast head and lumbar spine CT in order to obtain best potential images at this time of the both potential intracranial process as well as potential epidural abscess -discussed with tele-neuro, concern for CVA; watershed vs. embolic vs. infectious emboli; recomend repeat head CT. Unable to get LP due to possible lumbar spine osteo/epidural abscess, rec initiating acyclovir for HSV encephalitis -head CT wthout any intracranial findings -lumbar spine CT unable to rule out lumbar spine osteomyelitis for epidural spinal abscess secondary to artifact from spinal hardware -Discussed case with hospitalist at [facility] where they have all appropriate capabilities to assess and care for patient, and have agreed to accept patient in transfer (2) UTI (urinary tract infection): Status: Acute Assessment and plan: - 1 potentially many sources of infection as noted above (3) Osteoarthritis of right lower extremity: Status: Acute Assessment and plan: -As noted above (4) Encephalopathy: Status: Acute Assessment and plan: -Undifferentiated at this time, this may be a combination of toxic (patient was cocaine and marijuana positive at outside hospital and those remainder of drug screen was negative), infectious (given known UTI, high likelihood for left BKA stump osteo and epidural abscess at L4-L5 on myelitis) -Additionally, given that there is potential unclear intracranial process going on, plan is to get teleneurology consultation for further recommendations. Of note, this is scheduled to happen prior to above mentioned CT with sedation so that teleneurology can most appropriately assess the patient without any additional sedating medications on board. (5) Paraplegia: Status: Acute (6) Polysubstance (excluding opioids) dependence: Status: Acute Subjective Subjective Interval history since last seen: Patient remains mostly non-verbal but does not appear to be in any acute distress Exam Narrative Exam Narrative: Acute on chronically ill-appearing elderly female, malnourished/cachectic appearing, laying in bed resting in no acute distress, heart regular rhythm, lungs clear to auscultation bilaterally, abdomen soft, nontender, nondistended, spontaneously moving all 4 limbs, patient not following commands therefore unable to perform appropriate neurologic exam at this time Objective Last Vital Signs Temp 97.2 F L 10/12/24 15:40 Pulse 58 L 10/12/24 12:02 Resp 18 10/12/24 16:00 BP 99/51 L 10/12/24 12:02 Pulse Ox 95 10/12/24 16:00 Laboratory Results - last 24 hr 10/11/24 10/11/24 10/12/24 17:00 21:02 08:12 Sodium 165 H* 164 H* 155 H Potassium 2.8 L* 2.7 L* 3.1 L Chloride 128 H 127 H 122 H Carbon Dioxide 25.3 24.7 24.0 Anion Gap 11.7 H 12.3 H 9.0 BUN 14 14 12 Creatinine 0.6 0.6 0.6 Est GFR (CKD-EPI 2020) 122.99 122.99 122.99 Glucose 101 99 110 H Calcium 8.6 8.2 L 8.0 L Time Spent with Patient Time Spent with Patient: >50 minutes Time was spent: preparing to see the patient(eg.review tests), obtaining and/or reviewing separately otained hiistory, ordering medications,tests, procedures, referring, communicating with other health career coach, indepentently interpreting results, counseling the patient and care coordination
[2024-10-12] MEDS: Lactated Ringers 1,000 ML 125 ML IV (17:30)
[2024-10-12 19:00] LABS: Anion Gap 7.4 mmol/L (3-11); BUN 11 mg/dL (7-18); CO2 24.6 mmol/L (21.0-32.0); CREATININE 0.6 mg/dL (0.55-1.02); Calcium 8.1 mg/dL (8.5-10.1); Chloride 117 mmol/L (98-107); Estimated GFR 122.99 (mL/min/1.73m2); Glucose 113 mg/dL (74-106); Potassium 3.6 mmol/L (3.5-5.1); Sodium 149 mmol/L (136-145)
[2024-10-12 19:10] LABS: Vancomycin, Random 8.1 ug/mL
[2024-10-12] MEDS: VANCOMYCIN/WATER (PEG) 1.25 GM/250 ML BAG IVPB (23:03)
[2024-10-13] MEDS: PIPERACILLIN/TAZO 4.5 GM in Normal Saline 100 ML IVPB ×4 (01:10→20:33)
[2024-10-13] MEDS: Acetaminophen 325 MG TAB PO ×3 (02:45→20:32)
[2024-10-13] MEDS: HYDROmorphone 2 MG/ML SYR 1 MG IVP ×2 (02:45→06:57)
[2024-10-13 03:05] VITALS: BP 96/64; PULSE 72; RESP 16; TEMP 36.4; O2SAT 97
[2024-10-13] MEDS: Lactated Ringers 1,000 ML 125 ML IV ×2 (06:10→20:32)
[2024-10-13] MEDS: Normal Saline Flush 10 ML SYR IVP ×3 (06:57→20:33)
[2024-10-13 07:33] VITALS: BP 119/64; PULSE 64; RESP 14; TEMP 36.8; O2SAT 97
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
[2024-10-13 09:51] LABS: HCT 33.2 % (36.0-46.0); HGB 11.1 g/dL (11.2-15.7); MCH 30.4 pg (27.0-33.0); MCHC 33.4 % (32.0-36.0); MCV 91 fL (80-95); MPV 9.9 fL (8.0-11.0); Platelet Count 349 10^3/uL (130-400); RBC 3.65 10^6/uL (3.93-5.22); RDW 14.2 % (11.7-14.6); WBC 7.84 10^3/uL (4.4-10.8)
[2024-10-13 10:03] LABS: Anion Gap 6.5 mmol/L (3-11); BUN 11 mg/dL (7-18); CO2 26.5 mmol/L (21.0-32.0); CREATININE 0.5 mg/dL (0.55-1.02); Calcium 8.4 mg/dL (8.5-10.1); Chloride 113 mmol/L (98-107); Estimated GFR 128.52 (mL/min/1.73m2); Glucose 99 mg/dL (74-106); Potassium 3.8 mmol/L (3.5-5.1); Sodium 146 mmol/L (136-145)
[2024-10-13] MEDS: Ondansetron O.D.T. 4 MG TABEF PO (10:29)
[2024-10-13 11:16] VITALS: BP 133/73; PULSE 75; RESP 15; TEMP 37.1; O2SAT 97
[2024-10-13 12:51] VITALS: TEMP 37.2
[2024-10-13] MEDS: LORazepam 2 MG/ML VIAL 1 MG IVP ×2 (13:19→22:41)
[2024-10-13] MEDS: Enoxaparin 30 MG/0.3 ML SYR SC (14:30)
[2024-10-13 14:57] VITALS: BP 143/94; PULSE 95; RESP 15; TEMP 36.6; O2SAT 98
[2024-10-13] MEDS: Baclofen 10 MG TAB 30 MG PO ×2 (18:37→20:32)
--- NOTE | 2024-10-13 18:39 | W.PM.PROGNOT ---
Date of Service Date of service: 10/13/24 Time of Service: 16:43 Assessment and Plan Assessment and plan (1) Septic shock: Status: Acute Assessment and plan: - Patient may criteria for septic shock as that she was noted as having a white count at outside hospital, tachycardia, lactic acid of 4.1, and he did require Levophed but this is since been discontinued upon arrival to [facility] -She was started on vancomycin and Zosyn which will be continued for presumed UTI -Significant additional information has come to light since patient has been accepted to [facility] -Orthopedic surgery reviewed images from outside hospital, late was a noncontrast that he believes there is strong evidence 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 -Plan at this time is as follows: -At this facility we are unable to safely sedate patient for MRI, therefore most appropriate study to further evaluate patient's intracranial findings at outside hospital as well as potential spinal abscess are not available -Given this limitation, plan is for anesthesia to assist in conscious sedation of patient (likely with propofol though this is subject to change at this time), in order to obtain with and without contrast head and lumbar spine CT in order to obtain best potential images at this time of the both potential intracranial process as well as potential epidural abscess -discussed with tele-neuro, concern for CVA; watershed vs. embolic vs. infectious emboli; recomend repeat head CT. Unable to get LP due to possible lumbar spine osteo/epidural abscess, rec initiating acyclovir for HSV encephalitis -head CT wthout any intracranial findings -lumbar spine CT unable to rule out lumbar spine osteomyelitis for epidural spinal abscess secondary to artifact from spinal hardware -Discussed case with hospitalist at [facility] where they have all appropriate capabilities to assess and care for patient, and have agreed to accept patient in transfer -While patient is more awake and much closer to her baseline mental status, she is frequently observed as being impulsive and unable to sit still in bed, continuing to necessitate transfer for sedation for optimal MRI imaging to rule out osteo and abscess as noted above (2) UTI (urinary tract infection): Status: Acute Assessment and plan: - 1 potentially many sources of infection as noted above (3) Osteoarthritis of right lower extremity: Status: Acute Assessment and plan: -As noted above (4) Encephalopathy: Status: Acute Assessment and plan: -Undifferentiated at this time, this may be a combination of toxic (patient was cocaine and marijuana positive at outside hospital and those remainder of drug screen was negative), infectious (given known UTI, high likelihood for left BKA stump osteo and epidural abscess at L4-L5 on myelitis) -Additionally, given that there is potential unclear intracranial process going on, plan is to get teleneurology consultation for further recommendations. Of note, this is scheduled to happen prior to above mentioned CT with sedation so that teleneurology can most appropriately assess the patient without any additional sedating medications on board. (5) Paraplegia: Status: Acute (6) Polysubstance (excluding opioids) dependence: Status: Acute Subjective Subjective Interval history since last seen: Patient states that she is having some back pain and would like her baclofen. Exam Narrative Exam Narrative: chronically ill-appearing elderly female, malnourished/cachectic appearing, awake, alert, oriented to person and place but appears to have difficultly understanding her current medical condition, laying in bed resting in no acute distress, heart regular rhythm, lungs clear to auscultation bilaterally, abdomen soft, nontender, nondistended, spontaneously moving all 4 limbs Objective Last Vital Signs Temp 97.9 F 10/13/24 14:57 Pulse 95 H 10/13/24 14:57 Resp 15 10/13/24 14:57 BP 143/94 H 10/13/24 14:57 Pulse Ox 98 10/13/24 14:57 Laboratory Results - last 24 hr 10/12/24 10/13/24 18:35 09:42 WBC 7.84 RBC 3.65 L Hgb 11.1 L Hct 33.2 L MCV 91 MCH 30.4 MCHC 33.4 RDW 14.2 Plt Count 349 MPV 9.9 Sodium 149 H 146 H Potassium 3.6 3.8 Chloride 117 H 113 H Carbon Dioxide 24.6 26.5 Anion Gap 7.4 6.5 BUN 11 11 Creatinine 0.6 0.5 L Est GFR (CKD-EPI 2020) 122.99 128.52 Glucose 113 H 99 Calcium 8.1 L 8.4 L Random Vancomycin 8.1 Time Spent with Patient Time Spent with Patient: >50 minutes Time was spent: preparing to see the patient(eg.review tests), obtaining and/or reviewing separately otained hiistory, ordering medications,tests, procedures, referring, communicating with other health medicare specialist, indepentently interpreting results, counseling the patient and care coordination
[2024-10-13 19:03] VITALS: BP 109/86; PULSE 89; RESP 18; TEMP 36.9; O2SAT 98
[2024-10-13] MEDS: VANCOMYCIN/WATER (PEG) 1.25 GM/250 ML BAG IVPB (22:05)
[2024-10-14] MEDS: HYDROmorphone 2 MG/ML SYR 1 MG IVP ×3 (00:36→05:01)
[2024-10-14] MEDS: PIPERACILLIN/TAZO 4.5 GM in Normal Saline 100 ML IVPB ×3 (01:16→15:05)
[2024-10-14] MEDS: Normal Saline Flush 10 ML SYR IVP ×3 (03:37→20:44)
[2024-10-14] MEDS: LORazepam 2 MG/ML VIAL 1 MG IVP ×3 (05:02→12:40)
[2024-10-14 07:18] VITALS: BP 138/96; PULSE 64; RESP 18; TEMP 37.2; O2SAT 98
[2024-10-14] MEDS: Acetaminophen 325 MG TAB PO ×2 (08:11→20:44)
[2024-10-14] MEDS: Ondansetron O.D.T. 4 MG TABEF PO (08:15)
[2024-10-14] MEDS: Baclofen 10 MG TAB 30 MG PO ×2 (08:38→20:44)
--- NOTE | 2024-10-14 09:03 | PDOC.CMPRO ---
Date of service: 10/14/24 Time of Service: 09:03 Care Management Progress Note Progress Note Text Progress Note Text: Renetta was sitting up in bed when CM met with her. RN is present. Her tone of voice and speech appear much younger than her stated age. Renetta confirmed that she lives with her Grandfather (Bma)and her (Thania). Per pt, Thania takes care of her at home and is very good to her. She met Thania on a facebook dating group and they have been for 4 years. During this interaction Renetta stated that she needed a hug and is holding her stuffed animal. She is diaphoretic and her ze is damp and says she always sweats when she doesn't feel good and has too much urine in her peepee. [facility] transfer is on hold at this time, per Dr. Hoff. Darian from [facility] reports that pt has received services through [facility] in the past and Thania may be her paid caregiver. CM will continue to follow. Discharge Potential Discharge Needs: PT Evaluation, PCP F/U Appt and Surgical F/U Appt Anticipated Barriers to Discharge: Medical Status Patient/Family Education Needs: Review discharge instructions, discuss Ask Me Three Plan: Further evaluation and medical work up is needed. Anticipate, pt will discharge home with [facility] services if she doesn't need to transfer to tertiary facility. Transfer to [facility] is on hold. CM will continue to follow and update the plan as needed. Social Determinants of Health Screening Will the Patient Participate in the Screening?: Unable to obtain
[2024-10-14] MEDS: VANCOMYCIN/WATER (PEG) 750 MG/150 ML BAG 150 MG IVPB (11:25)
[2024-10-14 12:43] VITALS: BP 108/66; PULSE 108; RESP 17; TEMP 35.7; O2SAT 99
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
[2024-10-14] MEDS: Pantoprazole 40 MG VIAL IVP (15:04)
[2024-10-14] MEDS: Enoxaparin 30 MG/0.3 ML SYR SC (15:04)
--- NOTE | 2024-10-14 15:52 | NUR.NOTE ---
attempted suprapubic catheter; inserted 8 inches without success. 200cc in stafford catheter. Provider aware, urology consulted. Nursing Note:
--- NOTE | 2024-10-14 16:15 | TELEFU_ITS ---
Date of service: 10/13/24 Time of Service: 11:00 Nutrition Note NOTE: met with pt on 10/13. Pt being evaluated/treated for sepsis and involved in complicated situation involving getting appropriately evaluated for osteomyelitis and anticipated to transfer to [facility] for this. When visited with yesterday she was on full liq diet and has advanced with reported fair toleration but lower appetite. Poor dentition noted on interview. Pt lives with grandfather and she states he does all the shopping and cooking. UBW reported at 90lbs - pt presently weighed at 80.7lbs. total protein and albumin labs low on the - pt amenable to chocolate boost ons as an evening nourishment. Will follow labs, weight, po intake/diet toleration Time Spent in Nutritional Counseling and Treatment: 10 min
[2024-10-14] MEDS: Escitalopram 20 MG TAB PO (16:50)
[2024-10-14] MEDS: Oxybutynin-CR 5 MG TABCR 10 MG PO (16:50)
[2024-10-14] MEDS: Escitalopram 10 MG TAB PO (16:51)
[2024-10-14] MEDS: cefTRIAXone 1 GM/50 ML BAG IVPB (16:59)
[2024-10-14] MEDS: LORazepam 1 MG TAB PO (17:02)
[2024-10-14 18:09] LABS: Anion Gap 3.8 mmol/L (3-11); BUN 11 mg/dL (7-18); CO2 35.2 mmol/L (21.0-32.0); CREATININE 0.5 mg/dL (0.55-1.02); Calcium 9.5 mg/dL (8.5-10.1); Chloride 107 mmol/L (98-107); Estimated GFR 128.52 (mL/min/1.73m2); Glucose 82 mg/dL (74-106); Potassium 3.9 mmol/L (3.5-5.1); Sodium 146 mmol/L (136-145)
--- NOTE | 2024-10-14 20:31 | W.ORTHOCONSU ---
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 This was thought to be derived from a fulminant urinary tract infection. She deteriorated requiring blood pressure support and then was transferred here at [facility]. During her workup at [facility] CT scan of lumbar spine and of the right femur particularly was performed. She has a history of an AKA on the right side due to osteomyelitis by report. There was some redness and irritation at a minimum to the stump of the right AKA. There is concern of osteomyelitis based on the findings CT scan. Since her admission here she has cleared. Her mental status has improved to baseline per medicine report. She has had no recent fevers no chills. Her white count is normal and ESR is within normal limits as well. She does report some mild lower back and waistline discomfort. Spine surgeries performed more than 15 years ago. She does report some irritation of the right AKA stump but denies any drainage or opening of the skin. Consults Consult date: 10/14/24 Requesting physician: Emilio Blackmon Consult Reason Concern for osteomyelitis Assessment and Plan Assessment and plan (1) Above knee amputation of right lower extremity: Status: Acute Assessment and plan: Renetta is a 29-year-old female with a complex medical history, unfortunately stemming mostly from CVA she had as a young child. Her mental status is improved. It seems like inflammation and infection is also improving. There was a source from the urine which was clear. There is concern about the end of her femoral stump on the right side as well as her lumbar spine. However, she seems to be improving. Therefore, this makes the diagnosis of osteomyelitis acutely worsen with osseous abscess much less likely. Initially, it was recommended to have MRI to evaluate these areas. However, with clinical improvement I do not think this is necessary. She does have some irritation around the stump on the right leg but it does not appear infectious in nature. I recommend nursing to use what ever pressure reducing dressings, Mepilex or similar, to help decrease some the pressure on the end the stump as she does move quite a bit using that right leg to push off. It does not necessarily need to be wrapped but covering some of these areas could be helpful. I think is very reasonable, given her clinical improvement, to follow this. We know that she had a fulminant urinary tract infection. Treating this aggressively as per usual norms is very reasonable. If she has recurrence of fever or septic findings, then further investigation with MRI would be indicated for the femur and potentially the back, however, with her improvement this is less likely. There is no formal orthopedic follow-up necessary. Review of Systems All systems reviewed & are unremarkable except as noted in HPI and below PFSH All Active Problems (Updated 10/15/24 @ 05:41 by Koko Coffman MD) Above knee amputation of right lower extremity (Acute) GERD (gastroesophageal reflux disease) (Chronic) Discharge planning issues (Acute) DVT prophylaxis (Acute) Urinary outflow obstruction (Acute) Hypernatremia (Acute) Polysubstance (excluding opioids) dependence (Acute) Paraplegia (Acute) Encephalopathy (Acute) Osteoarthritis of right lower extremity (Acute) UTI (urinary tract infection) (Acute) Septic shock (Acute) Surgical History S/P lumbar spinal fusion 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 Blackmon Exam Const General: cooperative, comfortable, no acute distress and frail appearing Other: Constantly moving in the bed with hyperflexion of the hips and of the left knee. Extrem Other: Brief evaluation of the back shows a midline incision without any signs of infection. No erythema. There is no area of fluctuance. There is no pain to palpation throughout the midline of the spine. Evaluation of the right lower extremity shows an above-knee amputation. The tissues are soft. There is no area of fluctuance. There is a partial-thickness abrasion at the end of the AKA stump which is not full-thickness. No expressible fluid. No surrounding erythema. There is also some abrasion seen over the lateral border of the right thigh as well, once again full-thickness and not associate with erythema or other concerning features. She has no sensation in the leg. However, on deep pressure and palpation I am unable to palpate any area of fluctuance or mass effect around the femur end. Results Last Vital Signs Temp 35.7 C L 10/14/24 12:43 Pulse 108 H 10/14/24 12:43 Resp 17 10/14/24 12:43 BP 108/66 10/14/24 12:43 Pulse Ox 99 10/14/24 12:43 Labs 10/13/24 09:42 10/14/24 17:30 Labs: Laboratory Results - last 24 hr 10/14/24 17:30 Sodium 146 H Potassium 3.9 Chloride 107 Carbon Dioxide 35.2 H Anion Gap 3.8 BUN 11 Creatinine 0.5 L Est GFR (CKD-EPI 2020) 128.52 Glucose 82 Calcium 9.5 Imaging Imaging Studies: Multiple studies were reviewed. Primarily the CT scan from [facility] of the lumbar spine was reviewed. This shows extensive hardware throughout. There is some erosion of the superior endplate of L5 with what appears to be some sclerosis or potentially rim formation in the epidural space at the level of L4 and L5. Once again the interpretation of the CT scan is limited by the significant mount of hardware. A repeat a CT scan performed here in the hospital is very challenging to appreciate any contrast-enhancement in this region making difficult determine postsurgical changes from something more sinister as infection. CT scan of the right lower extremity performed in [facility] does show heterotopic changes to the end of the femoral stump. There are multiple clips in position. There is a circular lucency seen within the heterotopic ossification about the anteromedial aspect of the femur with a few breaks in this cortical rim. This is potentially concerning for infection although no other changes within the femoral shaft are appreciated.
[2024-10-15 03:50] VITALS: BP 102/45; PULSE 79; RESP 18; TEMP 37.2; O2SAT 99
[2024-10-15 06:58] LABS: BUN 9 mg/dL (7-18); CREATININE 0.5 mg/dL (0.55-1.02); Calcium 8.9 mg/dL (8.5-10.1); Chloride 107 mmol/L (98-107); Estimated GFR 128.52 (mL/min/1.73m2); Glucose 91 mg/dL (74-106); Potassium 3.3 mmol/L (3.5-5.1); Sodium 146 mmol/L (136-145)
[2024-10-15 07:53] VITALS: BP 124/66; PULSE 70; RESP 20; TEMP 37.4; O2SAT 97
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
[2024-10-15] MEDS: Potassium Chloride Liquid 20 MEQ PKT 40 MEQ PO (09:01)
[2024-10-15] MEDS: Baclofen 10 MG TAB 30 MG PO ×2 (09:02→20:50)
[2024-10-15] MEDS: Escitalopram 10 MG TAB PO (09:02)
[2024-10-15] MEDS: Normal Saline Flush 10 ML SYR IVP ×3 (09:03→20:51)
[2024-10-15] MEDS: Oxybutynin-CR 5 MG TABCR 10 MG PO (09:03)
[2024-10-15] MEDS: Escitalopram 20 MG TAB PO (09:03)
[2024-10-15] MEDS: Pantoprazole 40 MG TABCR PO (09:03)
[2024-10-15 11:21] VITALS: BP 97/64; PULSE 71; RESP 20; TEMP 36.9; O2SAT 99
[2024-10-15 12:24] VITALS: BP 148/86; PULSE 74; RESP 16; TEMP 37.4; O2SAT 96
--- NOTE | 2024-10-15 12:56 | PGE_ITS ---
Date of Service Date of service: 10/15/24 Time of Service: 12:56 Assessment and Plan Assessment and plan (1) Septic shock: Status: Acute Assessment and plan: - Patient met criteria for septic shock on admission with elevated WBC, tachycardia, lactic acid of 4.1. She did require norepinephrine, but pressors discontinued upon arrival to [facility] - She was started on vancomycin and Zosyn which was continued for presumed UTI +/- additional infection. Changed to ceftriaxone based on [facility] urine Cx 10/14. Blood cultures negative x 2 for 5 days. 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 F/u CT w/wo of spine was limited due to hardware but not suggestive of osteomyelitis or abscess. Now clinically improved with no signs of focal bone infection clinically. I apprecaite Dr. Coffman's consult. ESR on admission here also not c/w osteomyelitis. -Initial plan was transfer for MRI with sedation, cancelled 10/14 with clinical improvement. -Plan at this time is as follows: -Plan to treat urinary proteus x 7 days, continue ceftriaxone. If she gets sick again, consider reassessment for alternative source. (2) UTI (urinary tract infection): Status: Acute Assessment and plan: - culture results from [facility] reviewed, proteus, narrowed antibiotics to ceftriaxone as above. She uses prn oral antibiotics Bactrim, this proteus is sensitive to sulfamethoxazole. (3) Encephalopathy: Status: Acute Assessment and plan: -Now resolved. Likely a combination of toxic (patient was cocaine and marijuana positive at outside hospital and this started after smoking a joint that may have been contaminated), infectious (given known UTI). Being off her SSRI was clearly contributing 10/14, she is at her baseline today and can voice understanding of her care. (4) Polysubstance (excluding opioids) dependence: Status: Acute Assessment and plan: She denies using anything but cannibus on purpose, but clearly had cocaine in system, may have been fentanyl or other sedative as well given clinical history. (5) Urinary outflow obstruction: Status: Acute Assessment and plan: Typically self caths through her umbilicus to her surgical bladder. She was acutely obstructed 10/14 due to mucous, now flushing. Try to get home straight caths to make sure she can do this on her own before we pull stafford and send her home. She can resume oxybutynin for comfort from spasms. (6) DVT prophylaxis: Status: Acute Assessment and plan: LMWH (7) Hypernatremia: Status: Acute Assessment and plan: Almost resolved with IV hydration with D5w AND LR. She is now taking good oral intake. (8) GERD (gastroesophageal reflux disease): Status: Chronic Assessment and plan: resumed PPI, no longer abdominal pain, guiac negative. (9) Discharge planning issues: Status: Acute Assessment and plan: Ms. Koenig is a vulnerable adult but has capacity to make decisions and she denies abuse or unsafe living situation, despite the circumstantial history we have. Plan to touch base with grandfather and before discharge, likely 10/16 Subjective Subjective Patient reports: no new complaints, feels better and tolerating a regular diet; denies nausea, vomiting, shortness of breath or fever Interval history since last seen: events: now flushing stafford, patient still having diffuclty with straight catheters we have here through umbilicus Renetta is feeling much better. She feels normal now. No longer getting sweating or abdominal pain. She doesn't remember being at [facility] or the ICU. She remembered smoking MJ joint with friends, going back into house, and that is it. States her grandfather found her. She denies any ilicit drug use but people around her may have used. She previously abused a lot of crack and methamphetamines mostly, but no longer uses anything but cannibis. No alcohol. She denies any abuse at home, feels safe. Exam Narrative Exam Narrative: Thin but bright appearing female, awake, alert, oriented x 4 other than still thinking she is at [facility]. Moving around comfortably in bed. heart regular rhythm, no murmur. lungs clear to auscultation bilaterally, abdomen soft, NT/ND. Superficial ulceration of skin of distal right stump, dressed, no deep wounds or induration or tenderness. Objective Last Vital Signs Temp 37.4 C 10/15/24 12:24 Pulse 74 10/15/24 12:24 Resp 16 10/15/24 12:24 BP 148/86 H 10/15/24 12:24 Pulse Ox 96 10/15/24 12:24 Laboratory Results - last 24 hr 10/14/24 10/15/24 17:30 06:28 Sodium 146 H 146 H Potassium 3.9 3.3 L Chloride 107 107 Carbon Dioxide 35.2 H 34.0 H Anion Gap 3.8 5.0 BUN 11 9 Creatinine 0.5 L 0.5 L Est GFR (CKD-EPI 2020) 128.52 128.52 Glucose 82 91 Calcium 9.5 8.9 C-Reactive Protein 1.90 H Time Spent with Patient Time Spent with Patient: 35-49 minutes Time was spent: preparing to see the patient(eg.review tests), obtaining and/or reviewing separately otained hiistory, ordering medications,tests, procedures, referring, communicating with other health respiratory care technician, indepentently interpreting results, counseling the patient and care coordination
[2024-10-15] MEDS: Enoxaparin 30 MG/0.3 ML SYR SC (13:22)
[2024-10-15 14:34] VITALS: BP 123/99; PULSE 61; RESP 16; TEMP 37.2; O2SAT 99
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
[2024-10-15] MEDS: cefTRIAXone 1 GM/50 ML BAG IVPB (16:18)
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
--- NOTE | 2024-10-15 20:34 | NUR.NOTE ---
This public relations writer came on shift, recieved report on pt and went to her bedside. during report it was noted that the patients stafford was not draining and she was in significant discomfort with the strong sensation of needing to urinate. This public relations writer attempted to flush stafford as instructed by off going nurse from the urologists instructions. The stafford was able to be flushed with sterile normal saline however it was not able to be aspirated. The flushing caused the patient significant pain. Consulted with hospitalist at bedside with patient. The decision was made to allow patient to self cath through her suprapubic site like she does at home. Patient successfully catheterized herself and was able to drain 1650cc out of her bladder. Provider ordered for the stafford to be D/C'd and for patient to self cath with supervision every 4 hours. Patient is agreeable to plan. Stafford was removed without complications. Patient instructed to use call landis for assistance with catheterizing.
[2024-10-15 23:59] VITALS: BP 108/55; PULSE 72; RESP 16; TEMP 36.9; O2SAT 98
[2024-10-16 02:36] VITALS: BP 143/90; PULSE 55; RESP 18; TEMP 37.1; O2SAT 98
[2024-10-16 07:43] VITALS: BP 91/48; PULSE 85; RESP 18; TEMP 37.2; O2SAT 98
[2024-10-16 07:45] LABS: Anion Gap 5.5 mmol/L (3-11); BUN 16 mg/dL (7-18); CO2 34.5 mmol/L (21.0-32.0); CREATININE 0.6 mg/dL (0.55-1.02); Calcium 9.2 mg/dL (8.5-10.1); Chloride 103 mmol/L (98-107); Estimated GFR 122.99 (mL/min/1.73m2); Glucose 110 mg/dL (74-106); Potassium 3.9 mmol/L (3.5-5.1); Sodium 143 mmol/L (136-145)
[2024-10-16 08:12] VITALS: BP 102/64
[2024-10-16] MEDS: Oxybutynin-CR 5 MG TABCR 10 MG PO (08:39)
[2024-10-16] MEDS: Baclofen 10 MG TAB 30 MG PO ×2 (08:39→20:45)
[2024-10-16] MEDS: Normal Saline Flush 10 ML SYR IVP ×2 (08:39→20:46)
[2024-10-16] MEDS: Pantoprazole 40 MG TABCR PO (08:39)
[2024-10-16] MEDS: Escitalopram 20 MG TAB PO (08:39)
[2024-10-16] MEDS: Escitalopram 10 MG TAB PO (08:39)
--- NOTE | 2024-10-16 08:57 | CMDISCH_ITS ---
Date of service: 10/17/24 Time of Service: 13:58 LACE Index Scoring Tool Questions: Length of Stay (in days): 7 - 13 Was the patient admitted via the E.D.?: No E.D. Visits: 0 Answers: Total Score: 5 Risk of Readmission: Low Risk Care Management Discharge Plan Reason for Hospitalization: Transfer from [facility] in [place] for Septic Shock Discharge Plan: Discharge home with New RN/PT/OT/STATISTICAL ENGINEER services. Transportation will be provided by [facility] private vehicle. Follow up with community providers and discharge plan of care as directed. RX delivery will be provided by [facility]. Patient/Family Education Needs: Review discharge instructions, limitations, medications and plan to follow up after discharge. Discuss ask me three:. SDOH Health Related Social Needs: No Data to Display
--- NOTE | 2024-10-16 10:12 | PTTR_ITS ---
PT Notes Visit Reasons: Septic Shock Physical Therapy Inpatient Treatment Note Date: 10/16/2024 Precautions: Fall. Standard. Activity as tolerated. R long AKA. Subjective: Agreeable to doing bed exercises with PT today. Hoping to go home as soon as she is cleared. Objective: General Observation: Resting in bed. Mental Status: Alert and oriented as to person, place, time, and purpose. Able to pay attention, focus, and respond appropriately. Pain: Some discomfort felt in her low back when she transferred Vital Signs: Closely monitored by nursing staff Bed Mobility/Transfers: Rolling independent Supine to sit independent Sit to supine independent Bed to bedside commode set up assist by caregiver using forward-backward technique Bedside commode to bed set up assist by caregiver using forward-backward technique Bed to reclining chair set up assist by caregiver using forward-backward technique Reclining chair to bed set up assist by caregiver using forward-backward technique Gait: Unable to test. Patient is along-time paraplegic. Balance: Static Sitting: Good Dynamic Sitting: Fair Static Standing: Unable to test Dynamic Standing: Unable to test Assessment: Recent long R transfemoral amputation now with open area being managed on this admission. Patient requiring set up assist for all bed to wheelchair transfer using forward-backward technique. Patient presents with clinical signs and symptoms consistent with current/admitting diagnoses that have resulted to mobility limitations, gait instability, generalized weakness, and overall ADL decline as demonstrated by the following impairment level findings: 1. Long-time paraplegia 2. Impaired activity tolerance 3. Limitation of joint range of motion in B LE (chroinic) 5. Deep tissue injury at tip of R residual AKA limb Impairments are contributing to the following functional limitations: 1. Decline in bed mobility skills 2. Decline in transfer skills 3. Increased completion time for mobility ADL performance 4. Increased risk for falls 5. Increased risk for skin breakdown/infection Plan of Care/Treatment Plan: 1x/day, 7 days/week x 1 week. Plan of care has been reviewed with the ELECTRICAL FITTER providing the service under Physical Therapy direction. Initiate Physical Therapy intervention for pain management as needed, strengthening, bed mobility, transfers, gait, stairs, balance training, and use of assistive device. THERA EX: Worked on increasing B UE strength and trunk strength performing sitting push ups using 5 lb DBwith paient able to lift trunk and B UE off bed for 1 minute x 5 Shoulder strengthening for B UE using 5 lb DB in OKC x 10 DISCHARGE RECOMMENDATIONS: [] Home with no services [] [X] Home with services. Patient will benefit from home health PT services in order to 1) progress transfer level using forward-backward technique; 2) initiate wheelchair re-assessment and seat mapping in coordination with DME provider; 3) identify additional equipment needs; 4) establish a functional maintenance program that will increase ability of patient to remain at home [] Home with outpatient PT [] [] SNF for continued rehabilitation [] [] [facility] [] [] SNF versus LTC based on ability to participate and progress [] TREATMENT CODE/TIME: 87395 x 44 minutes for 3 units (10:12-10:56).
--- NOTE | 2024-10-16 10:14 | W.UROLOGYCON ---
Date of service: 10/14/24 Time of Service: 16:30 Assessment and Plan Assessment and plan (1) Urinary outflow obstruction: Status: Acute Assessment and plan: Her urethral catheter was appropriately placed. She simply had a mechanical obstruction of her catheter due to mucus. In the past, we have utilized irrigation fluids such as Mucomyst to try to cut down on the mucus obstruction, but we have not been able to obtain Mucomyst for quite some time. Irrigation with saline is our next best option. Once the patient improves clinically and we have appropriate catheters for her self cath routine, she can resume her usual catheterization regimen. Since she has not appendicovesicostomy and not simply a suprapubic tract, we would not expect any scarring or closure of the appendicovesicostomy even without a catheter in place. We will also encourage her to follow up with the urology department down in [place]. She does have a large bladder stone (I measure it at over 3 cm in largest dimension), but she would not be considered a surgical candidate here at our facility and would need any procedure for her bladder stone at a tertiary care center. With her finding of Proteus in the urine at the outside hospital (her urine culture here is showing no bacterial growth) she certainly could have a struvite component to her bladder stone. History of Present Illness History of Present Illness Chief Complaint: urinary retention Narrative: This is a 29-year-old woman who has a history of a neurogenic bladder. We have very few records in our EMR system regarding her care, but I was able to find much more information in a urology consult note from a hospitalization in [facility] back in 2022. Because of her neurogenic bladder, the patient had undergone an augmentation cystoplasty using her bowel. She has an appendicovesicostomy with Mitrofanoff valve so that she is able to catheterize through her umbilicus. Her surgery was accomplished back in 2010. She is able to sense when her bladder is full. She generally uses a stiff 14 Greek catheter for self catheterizations. She is currently hospitalized with sepsis. She has not been able to successfully catheterize through her stoma with the catheter is available at our hospital. A urethral catheter was successfully placed, but her bladder remains full in spite of the catheter. In reviewing her [facility] records, the exact same scenario occurred back in 2022. Because of the mucus that is normally produced by the bowel (even though it is now attached to the bladder) the patient developed mucous occlusion of her catheter. Back in 2022, the urology staff placed a urethral catheter with the balloon inflated. They also placed a stiffer catheter through the appendicovesicostomy but did not inflate the balloon for fear of injuring the Mitrofanoff valve. Once the catheters were irrigated, adequate drainage was obtained. As the patient improved clinically and return toward her baseline, she was able to successfully resume her catheterization routine. She was identified as having a large bladder stone and there appeared to be follow-up plans for her to meet with Dr. Kapil banuelos at [facility]. I cannot find any actual follow-up appointments that had occurred. [facility] All Active Problems (Updated 10/15/24 @ 05:41 by Koko Coffman MD) Above knee amputation of right lower extremity (Acute) GERD (gastroesophageal reflux disease) (Chronic) Discharge planning issues (Acute) DVT prophylaxis (Acute) Urinary outflow obstruction (Acute) Hypernatremia (Acute) Polysubstance (excluding opioids) dependence (Acute) Paraplegia (Acute) Encephalopathy (Acute) Osteoarthritis of right lower extremity (Acute) UTI (urinary tract infection) (Acute) Septic shock (Acute) Surgical History S/P lumbar spinal fusion 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 Blackmon Exam Narrative Exam Narrative: The patient appears uncomfortable Her abdomen is distended. Her periumbilical stoma appears normal Her urethral catheter is in place. We hand irrigated the drainage port of the catheter with 50 cc of sterile water and we were able to provide adequate drainage of yellow-tinged urine. No clots were obtained She is awake and alert Results Last Vital Signs Temp 37.2 C 10/16/24 07:43 Pulse 85 10/16/24 07:43 Resp 18 10/16/24 07:43 BP 102/64 01/23/25 08:12 Pulse Ox 98 10/16/24 07:43 Labs 10/13/24 09:42 10/16/24 06:30 Labs: Laboratory Results - last 24 hr 10/16/24 06:30 Sodium 143 Potassium 3.9 Chloride 103 Carbon Dioxide 34.5 H Anion Gap 5.5 BUN 16 Creatinine 0.6 Est GFR (CKD-EPI 2020) 122.99 Glucose 110 H Calcium 9.2
--- NOTE | 2024-10-16 10:48 | PDOC.CMPRO ---
Date of service: 10/16/24 Time of Service: 10:48 Care Management Progress Note Progress Note Text Progress Note Text: Renetta is approaching medical readiness for discharge and will likely discharge back to her home in [place] where she lives with her and grandfather. Her mental status is very different than when she first presented and was likely caused by an acute process, now resolved with treatment.? I have spoken to Renetta in depth about her home environment and community needs. Per pt, she lives with her Grandfather (Bam)and her (Thania), both seem supportive. Her ?? is reportedly her primary caregiver, however Renetta prefers to do things on her own as much as possible.? When I met with Renetta yesterday she was much more clear and I felt that she demonstrated a good understanding of community resources and knew a lot about her chronic conditions. Renetta told me that her home is built ?underground? but has running water, heat, electric and is well insulated. I believe she and her rent a room from her grandfather, who she identified as an old biker with tattoos like her?. Her Grandfather has been contacted by phone and all interactions have been appropriate and he appears to be caring, but not her caregiver.? Renetta denies any concerns and reported that [facility] recently stopped her home visits. Per pt, her PCP Mai Carreon and social organization professor know her very well. Renetta states that she is connected with [facility], [facility], [facility] and mentioned that Fito has come and fixed her bathroom. She is familiar with local food pantries and reported to me that she has family nearby that help her with transportation and often bring her food items from the pantries. Per report, Dr. Hoff states that ?Ms. Koenig is a vulnerable adult but has capacity to make decisions and she denies abuse or unsafe living situation, despite the circumstantial history we have?. I also agree with this statement. When Renetta discharges from [facility] a referral will be sent to [facility] for New RN/PT/OT and TEXTILE TECHNOLOGIST. Renetta will also need to follow up with her PCP and Urology. Discharge Potential Discharge Needs: PCP F/U Appt and Other (Urology) Anticipated Barriers to Discharge: None Identified Patient/Family Education Needs: Review discharge instructions, discuss Ask Me Three Transportation: [facility] (Private Vehilce) Plan: Anticipate pt will discharge back home this afternoon with New O/E VNA RN, PT/OT/TEXTILE TECHNOLOGIST and transport via [facility] private vehicle, coordinated by CM. Anticipate Renetta will follow up with her community providers and discharge plan of care, as directed. PCP and Urology follow up highly recommended. CM will continue to follow and support pt with her discharge needs. Social Determinants of Health Screening Will the Patient Participate in the Screening?: Unable to obtain
[2024-10-16 15:14] VITALS: BP 124/61; PULSE 90; RESP 16; TEMP 37.5; O2SAT 99
--- NOTE | 2024-10-16 16:06 | PGE_ITS ---
Date of Service Date of service: 10/16/24 Time of Service: 16:06 Assessment and Plan Assessment and plan (1) Septic shock: Status: Acute Assessment and plan: - Patient met criteria for septic shock on admission with elevated WBC, tachycardia, lactic acid of 4.1. She did require norepinephrine, but pressors discontinued upon arrival to [facility] - She was started on vancomycin and Zosyn which was continued for presumed UTI +/- additional infection. Changed to ceftriaxone based on [facility] urine Cx 10/14. Blood cultures negative x 2 for 5 days. 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 F/u CT w/wo of spine was limited due to hardware but not suggestive of osteomyelitis or abscess. Now clinically improved with no signs of focal bone infection clinically. I apprecaite Dr. Coffman's consult. ESR on admission here also not c/w osteomyelitis. -Initial plan was transfer for MRI with sedation, cancelled 10/14 with clinical improvement. -Plan at this time is as follows: -Extend treatment of urinary proteus x to 10 days given slow to clear, continue ceftriaxone. We could finish treatment at home with cipro. Will transition tonight and monitor tomorrow. If she is stable, plan home with cipro to finish her treatment. If she gets sick again, consider reassessment for alternative source. (2) UTI (urinary tract infection): Status: Acute Assessment and plan: - culture results from [facility] reviewed, proteus, narrowed antibiotics to ceftriaxone as above. She uses prn oral antibiotics Bactrim, this proteus is se nsitive to sulfamethoxazole. (3) Encephalopathy: Status: Acute Assessment and plan: -Now resolved. Likely a combination of toxic (patient was cocaine and marijuana positive at outside hospital and this started after smoking a joint that may have been contaminated), infectious (given known UTI). Being off her SSRI was clearly contributing, restarted 10/14 and since 10/15 she is at her baseline. (4) Polysubstance (excluding opioids) dependence: Status: Acute Assessment and plan: She denies using anything but cannabis on purpose, but clearly had cocaine in system, may have been fentanyl or other sedative as well given clinical history. We discussed this, recommended sourcing from dispesary in future. (5) Urinary outflow obstruction: Status: Acute Assessment and plan: Typically self caths through her umbilicus to her surgical bladder. She was ac utely obstructed 10/14 due to mucous. Now has larger straight caths and is managing, stafford out 10/15. She can resume oxybutynin for comfort from spasms. (6) DVT prophylaxis: Status: Acute Assessment and plan: LMWH (7) Hypernatremia: Status: Acute Assessment and plan: Resolved with IV hydration with D5w AND LR. She is now taking good oral intake. (8) GERD (gastroesophageal reflux disease): Status: Chronic Assessment and plan: resumed PPI, no longer abdominal pain, guiac negative. no change (9) Discharge planning issues: Status: Acute Assessment and plan: Ms. Koenig is a vulnerable adult but has capacity to make decisions and she denies abuse or unsafe living situation, despite the circumstantial history we have. Plan to touch base with grandfather and before discharge. She is hesitant to go home today. Given complicated infection that took a while to clear, will not push her out, make sure she is stable on oral antibiotics. (10) Bladder stone: Status: Acute Assessment and plan: a/w proteus as above. Will need urology f/u to consider removal as outpatient. Subjective Subjective Patient reports: tolerating a regular diet; denies bowel movement, nausea, vomiting, shortness of breath or fever Interval history since last seen: events: stafford obstructed again overnight, pulled. She is self catheterizing again now. She is feeling better overall, but hesitant to go home. She still feels like she needs IV therapy, still a bit tired/sluggish and feels like infection not totally cleared. No other pain, back and legs feel okay . Exam Narrative Exam Narrative: Thin but muscular appearing female, awake, alert, oriented x 4. Moving around comfortably in bed. heart regular rhythm, no murmur. lungs clear to auscultation bilaterally, abdomen soft, NT/ND. Superficial ulceration of skin of distal right stump, dressed, no deep wounds or induration or tenderness. Objective Last Vital Signs Temp 37.5 C 10/16/24 15:14 Pulse 90 10/16/24 15:14 Resp 16 10/16/24 15:14 BP 124/61 10/16/24 15:14 Pulse Ox 99 10/16/24 15:14 Laboratory Results - last 24 hr 10/16/24 06:30 Sodium 143 Potassium 3.9 Chloride 103 Carbon Dioxide 34.5 H Anion Gap 5.5 BUN 16 Creatinine 0.6 Est GFR (CKD-EPI 2020) 122.99 Glucose 110 H Calcium 9.2 Time Spent with Patient Time Spent with Patient: 35-49 minutes Time was spent: preparing to see the patient(eg.review tests), obtaining and/or reviewing separately otained hiistory, ordering medications,tests, procedures, referring, communicating with other health rn wound care, indepentently interpreting results, counseling the patient and care coordination
[2024-10-16] MEDS: Enoxaparin 30 MG/0.3 ML SYR SC (16:36)
[2024-10-16] MEDS: cefTRIAXone 1 GM/50 ML BAG IVPB (16:36)
[2024-10-16 18:34] VITALS: BP 126/60; PULSE 106; RESP 18; TEMP 38.4; O2SAT 96
[2024-10-16] MEDS: Ciprofloxacin 500 MG TAB PO (20:46)
[2024-10-16 23:48] VITALS: BP 122/75; PULSE 77; RESP 18; TEMP 36.4; O2SAT 94
[2024-10-17 03:45] VITALS: BP 100/54; PULSE 83; RESP 16; TEMP 36.6; O2SAT 97
[2024-10-17 07:52] VITALS: BP 88/56; PULSE 91; RESP 16; TEMP 36.3; O2SAT 98
[2024-10-17] MEDS: Escitalopram 10 MG TAB PO (07:59)
[2024-10-17] MEDS: Oxybutynin-CR 5 MG TABCR 10 MG PO (07:59)
[2024-10-17] MEDS: Baclofen 10 MG TAB 30 MG PO (07:59)
[2024-10-17] MEDS: Ciprofloxacin 500 MG TAB PO (07:59)
[2024-10-17] MEDS: Escitalopram 20 MG TAB PO (07:59)
[2024-10-17] MEDS: Pantoprazole 40 MG TABCR PO (07:59)
[2024-10-17] MEDS: Normal Saline Flush 10 ML SYR IVP (08:00)
--- NOTE | 2024-10-17 08:56 | CMPROGNOTE_ITS ---
Date of service: 10/17/24 Time of Service: 08:56 Care Management Progress Note Progress Note Text Progress Note Text: Renetta was sitting up in bed when CM met with her. She is pleasant and easily engages in conversation. She shared with CM that she ran out of Marijuana and smoked a joint her friend gave her and it ended up being laced with 'cocaine and fentanyl. CM provided patient with an OD prevention kit with fentanyl test strips and narcan. She is discharging home with full VNA services . [facility] referral was placed prior to discharge to support her with Healthcare coverage and food insecurity. [facility] advises that her Medicaid is showing as 'inactive'. Discharge Potential Discharge Needs: PCP F/U Appt and Other (Urology) Anticipated Barriers to Discharge: None Identified Patient/Family Education Needs: Review discharge instructions, discuss Ask Me Three Transportation: [facility] Transportation: Private vechicle (Does not need a wheelchair van.) Plan: Discharge home with New RN/PT/OT/PHOTOCOMPOSITION KEYBOARD OPERATOR services. Transportation will be provided by [facility] private vehicle. Follow up with community providers and discharge plan of care as directed. RX delivery will be provided by [facility]. Social Determinants of Health Screening Will the Patient Participate in the Screening?: Unable to obtain
--- NOTE | 2024-10-17 11:07 | PDOC.HHF2F_ITS ---
Home Health Referral Home Health Orders Clinical synopsis of why skilled professionals are needed: admitted with complicated UTI/Sepsis, encephalopathic. Grew proteus UTI. cocaine in system, was found down in home initially. 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 Medical diagnosis necessitation home health referral: Monitor for recurrent infection, urinary retention, mental status. There was some concern for another occult infection including in lumbar spine and right leg stump, but felt clinically not c/w deep infection, but should monitor for symptoms in these areas. Registered Nurse: Check all that apply Instruct on new or changed medication(s)/assess compliance: Ordered Instruct on, and maintenance of, urinary device: Ordered Assess for exacerbation of medical condition, instruct patient/caregivers on signs and symptoms to report for early detection: Ordered Assess wound for signs and symptoms of infection, instruct on wound care and/or provide skilled wound care consisting of: superficial skin wound right stump Physical Therapist: Check all that apply Increase strength & endurance for safe mobility at home: Ordered To design/establish home maintenance program: Ordered Occupational Therapist: Evaluate and treat for patient unable to perform ADL/IADL/self-care: Ordered Sox Analyst: Assist with community resources: Ordered Home Bound Status Requires the aid of supportive device (check all that apply): Wheelchair Describe why leaving home would require a considerable and taxing effort: Requires alternative accommodations: (paraplegia) Encounter Date and Reason: I certify that a FTF encounter for this patient was performed on October 17, 2024 and that such encounter was related to the primary reason the patient requires home health services. The encounter was conducted in the following manner: * By me as the certifying physician, DOCUMENTATION CONSULTANT, PA or * By an inpatient physician, DOCUMENTATION CONSULTANT or PA during an inpatient stay who communicated findings to me, Certification And Authentication I certify that I composed the above information based on my clinical judgment relating to this patient's medical condition and, if applicable, clinical findi ngs communicated to me by the NPP or inpatient physician who performed the FTF encounter. Name of Provider that will be monitoring home health services: Mai Carreon
[2024-10-17 11:08] VITALS: BP 103/55; PULSE 97; RESP 16; TEMP 36.8; O2SAT 97
--- NOTE | 2024-10-17 13:24 | W.PM.DS.N ---
Date of service: 10/17/24 Time of Service: 13:24 DS: Diagnosis Discharge Diagnosis (1) Septic shock: Status: Acute (2) UTI (urinary tract infection): Status: Acute (3) Encephalopathy: Status: Acute (4) Polysubstance (excluding opioids) dependence: Status: Acute (5) Urinary outflow obstruction: Status: Acute (6) DVT prophylaxis: Status: Acute (7) Hypernatremia: Status: Acute (8) GERD (gastroesophageal reflux disease): Status: Chronic (9) Discharge planning issues: Status: Acute (10) Bladder stone: Status: Acute Discharge Plan Disposition Patient Disposition: Home W/Home Health Services Condition: Stable Discharge Details Reason For Visit: Septic Shock Admit Date/Time: 10/10/24 07:43 Admit Provider: Nelson Márquez Attending Provider: Nelson Márquez Primary Care Provider: Mai Carreon Hospital Course Hospital Course: 29 yo F with history of paraplegia and neurogenic reconstructed bladder was found in home unresponsive in dry stool and nat to [facility] 10/09/23. She met criteria for septic shock on admission with elevated WBC, tachycardia, lactic acid of 4.1. She was admitted and treated with piperacilin/tazobactam and vancomycin. She breifly required norepineprhine for septic shock so was transferred to [facility] for ICU level care after they could not arrange a tertiary care bed. The patient remained encephalopathic and agitated and there was a concern for other sources of infection. Head CT was normal. CT wo contrast at [facility] was concerning for osteomyelitis of her right stump, but she only had a superficial wound there and her ESR was normal. There was also concern for lumbar spinal infection, but this was not seen on contrast CT (though limited by hardware). She was also given acyclovir IV. MRI was planned but she would need sedation which was not available here and she was accepted for transfer to [facility] but no bed were available. While we were waiting for beds, she improved clinically and her mental status normalized. She did not have pain in her stump or low back. She initially complained of abdominal pain and sweating, but this resolved with resumption of her SSRI, PPI, and antispasmotic outpatient medications. She was hypernatremic, and this resolved with IV and then oral fluids. Orthopedic surgery reviewed images and was able to see the patient 10/15. We decided that she was unlikely to have active osteomyelitis and to cancel additional imaging. Changed to ceftriaxone based on [facility] urine Cx growing proteun 10/14. Blood cultures negative x 2. She received 5 days of Pip/tazo and vancomycin, 3 days of ceftriaxone, and was transitioned to oral ciprofloxacin the night before discharge. She continued stable. She was given 2 more days of ciprofloxacin to complete 10 days of antibiotics. Home health nursing was ordered for clinical monitoring and wound care and signs/symptoms of infection were discussed. Home PT/OT also recommended and ordered along with social work. We had some concern for her safety at home and APS report was filed, but when she was awake she had clear capacity and denied abuse or neglect. She does say she smoked a joint of what she thought was MJ just before her last memories before waking up in the hospital. She did have THC and cocaine in her urine, and states she might have been given contaminated cannabis. She states she has a history of polysubstance abuse but only cannabis currently. She had some bladder obstruction due to mucous plugging of her stafford and was evaluated by Dr. Cordero from Urology. Once we were able to get 14 Serbian straight catheters, she was able to self-catheterize through her umbilicus. She has a large bladder stone which may be struvite with her proteus infection. She should have urology follow up at [facility]. We discussed preventive or prn antibiotics for UTIs, she will follow up on this with her PCP. Home Meds and New Rx's Prescriptions: New polyethylene glycol 3350 17 gram Powder In Packet 17 g PO DAILY PRN PRN (Reason: Constipation) Qty: 1 0RF ciprofloxacin HCl 500 mg Tablet 500 mg PO BID 2 Days Qty: 4 0RF Continued oxybutynin chloride 10 mg tablet extended release 24hr 10 mg PO DAILY baclofen 10 mg tablet 30 mg PO BID Patient Comments: TAKE THREE TABLETS BY MOUTH TWICE A DAY pantoprazole 40 mg tablet,delayed release (DR/EC) 40 mg PO DAILY Patient Comments: TAKE ONE TABLET BY MOUTH EVERY DAY escitalopram oxalate 10 mg tablet 10 mg PO DAILY Patient Comments: TAKE ONE TABLET BY MOUTH EVERY DAY WITH 20 MG TABLET FOR A TOTAL DOSE OF 30 MG ONCE DAILY escitalopram oxalate 20 mg tablet 20 mg PO DAILY Patient Comments: TAKE ONE TABLET BY MOUTH EVERY DAY acetaminophen 500 mg capsule 1,000 mg PO Q6H PRN Discharge Instructions Instructions: Urinary tract infection - Discharge instructions Additional Instructions: finish two more days of antibiotics watch for signs of infection Stand Alone Forms: Nursing Discharge Form Referrals: Mai Carreon [Primary Care Provider] - 10/27/24 12:20 pm Activity:: Activity as Tolerated Equipment/Supplies:: No Equipment Needed Diet:: As Tolerated Discharge Orders Discharge Orders: Discharge Order (Routine); Ordered 10/17/24 Ordered By: Jesús Hoff Discharge Data Discharge Date/Time-TO BE ENTERED AT DEPARTURE: 10/17/24 14:58 DS: Summary Time Spent with Patient providing and/or coordinating discharge services: Greater than 30 minutes Status at Discharge Functional status at discharge: wheelchair bound Overall status at discharge: patient is back to baseline Mental Status: mental status grossly normal Speech and Movement: speech and movement normal Mood: congruent mood Affect: normal affect Quality:SDOH Health Related Social Needs: No Data to Display Exam Narrative Exam Narrative: Thin but muscular appearing female, awake, alert, oriented x 4. Moving around comfortably in bed. heart regular rhythm, no murmur. lungs clear to auscultation bilaterally, abdomen soft, NT/ND. Superficial ulceration of skin of distal right stump, dressed, no deep wounds or induration or tenderness. Psych Mental Status: mental status grossly normal Speech and Movement: speech and movement normal Mood: congruent mood Affect: normal affect DS: Data Vitals/I&O Vitals and I&O: Vital Signs Temperature 36.8 C 10/17/24 11:08 Temperature Source Temporal Artery Scan 10/17/24 11:08 Pulse 97 H 10/17/24 11:08 Pulse 75 10/12/24 16:00 Respiratory Rate 16 10/17/24 11:08 Blood Pressure 103/55 L 10/17/24 11:08 Blood Pressure Mean 65 10/12/24 12:02 Pulse Oximetry 97 10/17/24 11:08 Oxygen Delivery Method Room Air 10/17/24 11:08 Oxygen Flow Rate 0 10/17/24 11:08 Pain Level 0 10/17/24 11:08 Comment RN notified of vitals 10/17/24 11:08 Intake & Output 10/16/24 10/17/24 10/17/24 23:59 11:59 23:59 Intake Total 1300 / 1330 940 / 940 Output Total 1750 / 3675 650 / 650 Balance -450 / -2345 290 / 290 Weight 35.8 kg Intake: IV 50 / 80 10 / 10 Oral 1250 / 1250 930 / 930 Output: Urine 1750 / 3675 650 / 650 Other: Urine Color Yellow Yellow Urine Appearance Sediment Sediment Comment suprapubic straight cath suprapubic straight cath, pt was dry at this time Stool Size Large Stool Characteristics Liquid PFSH All Active Problems (Updated 10/16/24 @ 16:13 by Jesús Hoff) Bladder stone (Acute) 3cm a/w proteus infection Above knee amputation of right lower extremity (Acute) GERD (gastroesophageal reflux disease) (Chronic) Discharge planning issues (Acute) DVT prophylaxis (Acute) Urinary outflow obstruction (Acute) Hypernatremia (Acute) Polysubstance (excluding opioids) dependence (Acute) Paraplegia (Acute) Encephalopathy (Acute) Osteoarthritis of right lower extremity (Acute) UTI (urinary tract infection) (Acute) Septic shock (Acute) Surgical History S/P lumbar spinal fusion 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 Blackmon Time Spent with Patient Time Spent with Patient: 45-69 minutes Time was spent: preparing to see the patient(eg.review tests), obtaining and/or reviewing separately otained hiistory, ordering medications,tests, procedures, referring, communicating with other health palliative care nurse practitioner, indepentently interpreting results, counseling the patient and care coordination
== END 2024-10-17 14:58 | disposition home health service (06) | DRG 871 ==
LOC: ICU 10-11 14:47 → MS 10-12 22:39
PROVIDERS: Family Medicine; Student in an Organized Health Care Education/Training Program; Admitting Provider Family Medicine; PCP Internal Medicine; Visit Provider Family Medicine
DX: A41.9 Sepsis, unspecified organism (principal); R65.21 Severe sepsis with septic shock; N39.0 Urinary tract infection, site not specified; E87.0 Hyperosmolality and hypernatremia; N13.8 Other obstructive and reflux uropathy; F19.20 Other psychoactive substance dependence, uncomplicated; E46 Unspecified protein-calorie malnutrition; Z68.1 Body mass index [BMI] 19.9 or less, adult; G93.49 Other encephalopathy; N21.9 Calculus of lower urinary tract, unspecified; N21.0 Calculus in bladder; Z89.611 Acquired absence of right leg above knee; N31.9 Neuromuscular dysfunction of bladder, unspecified; Z93.52 Appendico-vesicostomy status; K21.9 Gastro-esophageal reflux disease without esophagitis; F17.210 Nicotine dependence, cigarettes, uncomplicated; Z98.1 Arthrodesis status; Z78.1 Physical restraint status; B96.4 Proteus (mirabilis) (morganii) as the cause of diseases classified elsewhere; I69.365 Other paralytic syndrome following cerebral infarction, bilateral; F12.90 Cannabis use, unspecified, uncomplicated
CPT/HCPCS: 36410; 00123; 36415; 80048; 80053; 82805; 85027; 85652; 97110; 97163; 99222; 99223; 70470; 72132; 80202; 82272; 83605; 83735; 85025; 86140; 87086; 99233; 99239; J0133; J0696; J1171; J1630; J1650; J2060; J2470; J2543; J2704; J3010; J3370; J3372; J3480; J3490; J7060